=== PATIENT | male | born 1955 | race Two or more races ===

== ENCOUNTER 2024-04-27 13:30 | Outpatient (RCR) | payer MEDICARE, MEDICAID, SELFPAY ==
--- NOTE | 2024-04-21 18:11 | PT.ODAYNRPT ---
PT Outpatient Daily Note OP Daily Note Outpatient Physical Therapy Treatment Date: 04/21/24 Subjective: Less B UE pain since starting therapy Objective: See F/S for therex Assessment: Good therex tolerance with low tissue irritability Plan: REassess Length of Time (minutes) of Treatment: 30 Minutes Procedure Charges Therapeutic Exercise 30 minutes: Yes
--- NOTE | 2024-04-27 14:21 | PT.ODS1RPT ---
PT OP Progress/Discharge Note Date of Service: 04/27/24 Progress Note/DC Note Progress Note/Discharge Note: DC Note Service Continue Service or Discharge: Discharge Discharge Date: 04/27/24 Status Subjective: Less B UE pain since starting therapy, strength feels good. Objective: See F/S for therex B UE strength: Shoulder FF: 4/5 Abd: 4/5 Elbow Flexion: 4/5 ArOM: FF: full Assessment: Pt has attended 8/8 sessions with good progress to meet therapy goals. Pt can reach OH into FF x10 with <3/10 B shoulder pain and do HH chores with min B UE pain x30 mins to meet those goals. Plan: D/C with HEP Procedure Charges Therapeutic Exercise 30 minutes: Yes
== END 2024-05-14 23:59 | disposition home or self-care (01) ==
LOC: CPTX 13:30
PROVIDERS: PCP Nurse Practitioner Family; Referring Provider Nurse Practitioner Family; Visit Provider Nurse Practitioner Family
DX: M15.9 Polyosteoarthritis, unspecified (principal); I10 Essential (primary) hypertension
CPT/HCPCS: 97110

== ENCOUNTER → 2024-05-23 | Outpatient (CLI) | payer MEDICARE, MEDICAID, SELFPAY ==
--- NOTE | 2024-05-23 13:00 | XR_ITS ---
Examination: CT chest, without intravenous contrast. Sagittal and coronal 2-D reconstructions. Exam date and time: May 23, 2024 1331 hours INDICATIONS: CT chest November 25, 2023 bilateral pulmonary nodules CTDI:vol (mGy) 12.3 DLP: (mGycm) 492 Technique: Multiple 3.0 mm axial sections of the chest to been obtained. Bone and lung density settings are obtained. Sagittal and coronal 2-D reconstructions have been obtained. Low dose protocols were performed. One or more of the following dose reduction techniques were used; automated exposure control, adjustment of the mA and/or KV according to patient size, use of iterative reconstruction technique. Findings: No thoracic aortic aneurysm dilatation Main pulmonary artery segment is not enlarged Mild calcification left anterior descending coronary artery No paratracheal tracheobronchial or bronchopulmonary adenopathy 10 mm nodule with calcification right upper lobe No additional pulmonary nodules on this study No pneumonia or pulmonary edema Absent gallbladder No pancreatic or adrenal mass Significant parenchymal scarring left kidney IMPRESSION: No new pulmonary nodules No pneumonia or pulmonary edema or pleural disease
== END | disposition home or self-care (01) ==
PROVIDERS: PCP Physician Assistant; Referring Provider Specialist; Visit Provider Specialist
DX: R91.8 Other nonspecific abnormal finding of lung field (principal)
CPT/HCPCS: 71250

== ENCOUNTER → 2024-05-30 | Outpatient (CLI) | payer MEDICARE, MEDICAID, SELFPAY ==
--- NOTE | 2024-05-30 | XR_ITS ---
Examination: Lumbar spine 3 views Technique one AP lateral coned lateral lower lumbar spine 3 views Exam date and time: May 30, 2024 0901 hours INDICATIONS: Lower back pain 20 years FINDINGS: Moderate osteopenia No acute lumbar fracture Advanced degenerative disc disease L5-S1 Moderate lumbar spondylosis IMPRESSION: Diffuse lumbar degenerative disc disease, advanced L5-S1
== END | disposition home or self-care (01) ==
LOC: CDIM 07:43
PROVIDERS: Referring Provider Chiropractor; Visit Provider Chiropractor
DX: M51.369 Other intervertebral disc degeneration, lumbar region without mention of lumbar back pain or lower extremity pain (principal); M51.379 Other intervertebral disc degeneration, lumbosacral region without mention of lumbar back pain or lower extremity pain
CPT/HCPCS: 72100

== ENCOUNTER → 2024-06-02 | Outpatient (CLI) | payer MEDICARE, MEDICAID, SELFPAY ==
[2024-06-02 08:14] LABS: Collection Type, Urine Clean Catch; Squamous Epithelial Cell,Urine 0 /hpf (0-5)
[2024-06-02 08:36] LABS: Basophils # (Auto) 0.1 Thou/mm3 (0.0-0.2); Basophils % (Auto) 1 % (0-2.5); Eosinophils # (Auto) 0.2 Thou/mm3 (0.0-0.5); Eosinophils % (Auto) 2 % (0-10); Hematocrit 40.3 % (41.0-53.0); Hemoglobin 13.4 g/dL (13.5-16.0); Immature Granulocytes % (Auto) 0 % (0-0); Immature Granulocytes Auto 0.03 Thou/mm3 (0.00-0.00); Lymphocytes # (Auto) 1.7 Thou/mm3 (1.0-4.8); Lymphocytes % (Auto) 21 % (10-50); Mean Corpuscular HGB Conc 33.3 g/dl (31.0-37.0); Mean Corpuscular Hemoglobin 29.8 pg (25.0-35.0); Mean Corpuscular Volume 90 fL (80-100); Monocytes # (Auto) 0.7 Thou/mm3 (0.0-0.8); Monocytes % (Auto) 8 % (0-12); Neutrophils # (Auto) 5.7 Thou/mm3 (1.8-7.7); Neutrophils % (Auto) 68 % (37-80); Nucleated Red Blood Cell % 0 /100 WBC (0); Platelet Count 209 Thou/mm3 (140-440); RDW Standard Deviation 44.4 fL (35.1-43.9); Red Blood Count 4.49 Miln/mm3 (4.50-5.90); White Blood Count 8.3 Thou/mm3 (3.8-10.6)
[2024-06-02 08:36] LABS: Bilirubin,Urine Negative (Negative); Blood,Urine Negative (Negative); Clarity,Urine Clear (Clear/Hazy); Color,Urine Lt-Yellow (Lt Yel-Yel); Glucose, Urine Negative (Negative); Hyaline Casts,Urine < 1 /hpf (0-1); Ketones,Urine Negative (Negative); Leukocyte Esterase,Urine Negative (Negative); Nitrite,Urine Negative (Negative); Protein,Urine Negative (Neg - Trace); RBC,Urine 2 /hpf (0-3); Specific Gravity,Urine 1.018 (1.001-1.035); Urobilinogen,Urine Negative mg/dL (0.0-1.0); WBC,Urine < 1 /hpf (0-5)
[2024-06-02 09:45] LABS: Alanine Aminotransferase 22 U/L (10-49); Albumin/Globulin Ratio 1.7 (1.2-2.2); Alkaline Phosphatase 97 U/L (46-116); Anion Gap 7 (7-16); Aspartate Amino Transferase 18 U/L (0-34); BUN/Creatinine Ratio 17 Ratio (12-20); Bilirubin,Total 0.7 mg/dL (0.3-1.2); Blood Urea Nitrogen 22 mg/dL (9-23); Calcium 9.8 mg/dL (8.3-10.6); Calcium (Corrected) 9.8 mg/dL (8.5-10.1); Carbon Dioxide 29.3 mMol/L (20.0-31.0); Chloride 107 mMol/L (98-107); Creatinine (Component) 1.3 mg/dL (0.6-1.3); Globulin 2.4 gm/dL (2.3-3.5); Glucose 97 mg/dL (74-106); Osmolality,Calculated 288 (275-295); Potassium 4.4 mMol/L (3.4-5.1); Sodium 143 mMol/L (136-145); Thyroid Stimulating Hormone 1.15 uIU/mL (0.55-4.78); Total Protein 6.4 gm/dL (5.7-8.2); eGFR 59 See Note
[2024-06-02 14:22] LABS: Glucose Estimated Average 108 mg/dL (80-131); Hemoglobin A1C 5.4 % Hgb (4.8-6.0)
[2024-06-02 14:45] LABS: Cardiac Risk Estimate 3.7 RATIO (4.0-6.7); Cholesterol 174 mg/dL (132-200); HDL Cholesterol 47 mg/dL (40-60); LDL Cholesterol,Calculated 108 mg/dL (0-130); Triglycerides 93 mg/dL (30-150)
== END | disposition home or self-care (01) ==
LOC: COPL 07:07
PROVIDERS: PCP Physician Assistant; Referring Provider Internal Medicine; Visit Provider Internal Medicine
DX: I12.9 Hypertensive chronic kidney disease with stage 1 through stage 4 chronic kidney disease, or unspecified chronic kidney disease (principal); N18.30 Chronic kidney disease, stage 3 unspecified; N39.0 Urinary tract infection, site not specified
CPT/HCPCS: 36415; 80053; 80061; 81001; 83036; 84443; 85025

== ENCOUNTER → 2024-06-27 | Outpatient (CLI) | payer MEDICARE, MEDICAID, SELFPAY ==
--- NOTE | 2024-06-27 | XR_ITS ---
Examination: PA lateral chest 2 views TECHNIQUE: Upright PA lateral chest 2 views Exam date and time: June 27, 2024 0802 hours Comparison December 18, 2023 INDICATIONS: Preop, history chronic hypertension FINDINGS: Normal heart size The lungs are clear. Mild osteopenia IMPRESSION: No active disease
== END | disposition home or self-care (01) ==
LOC: CDIM 07:43
PROVIDERS: PCP Family Medicine; Referring Provider Nurse Practitioner Family; Visit Provider Nurse Practitioner Family
DX: Z01.818 Encounter for other preprocedural examination (principal)
CPT/HCPCS: 71046

== ENCOUNTER 2024-07-04 08:39 | Emergency (ER) | payer MEDICARE, MEDICAID, SELFPAY ==
[2024-07-04 08:41] VITALS: BMI 32.3
[2024-07-04 09:07] VITALS: BP 177/68; PULSE 60; RESP 17; TEMP 37.1; O2SAT 98; BMI 30.2
--- NOTE | 2024-07-04 09:17 | EKG_ITS ---
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 Seine: : 1955 Requested By: Renay Lewis ([facility]) Servando Order Number: [id number] Reading MD: Renay Lewis ([facility]) Servando Measurements Intervals Vega Rate: 56 P: 42 NE: 152 QRS: -9 QRSD: 102 T: 182 QT: 397 QTc: 384 Interpretive Statements SINUS BRADYCARDIA MODERATE T-WAVE ABNORMALITY, CONSIDER ANTEROLATERAL ISCHEMIA [-0.1+ mV T WAVE IN V3-V6] MODERATE T-WAVE ABNORMALITY, CONSIDER INFERIOR ISCHEMIA [-0.1+ mV T WAVE IN II/aVF] Compared to ECG 12/18/2023 09:46:59 Sinus rhythm no longer present T-wave abnormality still present Possible ischemia still present /store/S0/[id number]/ecg/[id number].pdf
--- NOTE | 2024-07-04 09:19 | XR_ITS ---
Examination: Abdomen sonogram, Limited Date and time of exam: July 04, 2024 1055 hours INDICATIONS: Heartburn abdominal pain beginning one week ago Technique: Real-time mazariegos scale transabdominal sonographic images of the upper abdomen obtained. Findings: Absent gallbladder Common bile duct 0.3 cm no stones Pancreatic head 2.8 cm Liver 13.3 cm irregular contour fatty infiltration no focal liver lesions Normal hepatopedal portal venous flow Patent IVC IMPRESSION: Normal common bile duct Suspect primary hepatocellular disease no focal liver lesions
--- NOTE | 2024-07-04 09:19 | PD.EDRME ---
Rapid Medical Screening Exam RME Arrival date/time: 07/04/24 08:39 This is a 68-year-old male history of hypertension, diabetes, renal sufficiency presents emergency department with concern plaints of upper epigastric abdominal pain associated with nausea. I have greeted and performed a focused initial assessment of this patient. Initial appropriate labs ordered at this time. A comprehensive ED assessment and evaluation of the patient and analysis of all test and completion of medical decision making process will be conducted by additional ED provider. Chief Complaint: Abdominal Pain Time Seen by Provider: 07/04/24 09:00 Vital signs: Vital Signs Temperature 98.8 F 07/04/24 09:07 Pulse Rate 60 07/04/24 09:07 Respiratory Rate 17 07/04/24 09:07 Blood Pressure 177/68 H 07/04/24 09:07 Pulse Oximetry (%) 98 07/04/24 09:07 Oxygen Delivery Method Room Air 07/04/24 09:07
[2024-07-04 10:22] LABS: Basophils # (Auto) 0.1 Thou/mm3 (0.0-0.2); Basophils % (Auto) 1 % (0-2.5); Eosinophils # (Auto) 0.2 Thou/mm3 (0.0-0.5); Eosinophils % (Auto) 3 % (0-10); Hematocrit 40.6 % (41.0-53.0); Hemoglobin 13.7 g/dL (13.5-16.0); Immature Granulocytes % (Auto) 0 % (0-0); Immature Granulocytes Auto 0.03 Thou/mm3 (0.00-0.00); Lymphocytes # (Auto) 1.2 Thou/mm3 (1.0-4.8); Lymphocytes % (Auto) 16 % (10-50); Mean Corpuscular HGB Conc 33.7 g/dl (31.0-37.0); Mean Corpuscular Hemoglobin 30.2 pg (25.0-35.0); Mean Corpuscular Volume 90 fL (80-100); Monocytes # (Auto) 0.6 Thou/mm3 (0.0-0.8); Monocytes % (Auto) 7 % (0-12); Neutrophils # (Auto) 5.4 Thou/mm3 (1.8-7.7); Neutrophils % (Auto) 72 % (37-80); Nucleated Red Blood Cell % 0 /100 WBC (0); Platelet Count 211 Thou/mm3 (140-440); RDW Standard Deviation 43.6 fL (35.1-43.9); Red Blood Count 4.53 Miln/mm3 (4.50-5.90); White Blood Count 7.5 Thou/mm3 (3.8-10.6)
[2024-07-04 10:28] VITALS: BP 182/73; PULSE 54; RESP 15; TEMP 36.9; O2SAT 94
[2024-07-04 10:38] LABS: Alanine Aminotransferase 23 U/L (10-49); Albumin, Serum 4.2 gm/dL (3.4-4.8); Albumin/Globulin Ratio 1.5 (1.2-2.2); Alkaline Phosphatase 89 U/L (46-116); Anion Gap 7 (7-16); Aspartate Amino Transferase 23 U/L (0-34); BUN/Creatinine Ratio 13 Ratio (12-20); Bilirubin,Total 0.8 mg/dL (0.3-1.2); Blood Urea Nitrogen 15 mg/dL (9-23); Calcium 10.1 mg/dL (8.3-10.6); Calcium (Corrected) 10.1 mg/dL (8.5-10.1); Carbon Dioxide 28.8 mMol/L (20.0-31.0); Chloride 105 mMol/L (98-107); Creatinine (Component) 1.2 mg/dL (0.6-1.3); Estimated Creatinine Clearance 55.4 mL/min (>60); Globulin 2.8 gm/dL (2.3-3.5); Glucose 142 mg/dL (74-106); Lipase 68 U/L (12-53); Osmolality,Calculated 284 (275-295); Potassium 3.6 mMol/L (3.4-5.1); Sodium 141 mMol/L (136-145); Troponin I < 0.020 ng/mL (0.0-0.045); eGFR > 60 See Note
[2024-07-04] MEDS: MG HYD/AL HYD/SIME (Maalox Reg) SUSP 30 ML UDC PO (11:12)
[2024-07-04] MEDS: LIDOCAINE VISCOUS 2% 15 ML UDC PO (11:12)
--- NOTE | 2024-07-04 11:19 | EDNOTE_ITS ---
ED General RME/HPI General Chief complaint: Abdominal Pain Stated complaint: ABD PAIN FOR 3 DAYS Time Seen by Provider: 07/04/24 09:00 Arrival date/time: 07/04/24 08:39 RME / HPI RME / HPI narrative: Sam complaint: 07/04/24 08:39 flank/ abdominal pain associated with nausea x 1 day HPI: Patient is a 68-year-old male history of primary hypertension, T2 diabetes, renal insufficiency presents emergency department with concern plaints of B/L flanks abdominal pain associated with nausea. Patient's pain started 2 days ago and progressively got worse. He describes his pain as intermittent, sharp and 10/10 when it occurs, localized mostly to the flanks, R>L. He has never experienced these symptoms before. Her denies any history of hernias, scrotal pain or radiation of his flank pain. Pain is worse with movement and improves with rest. he denies any fevers or other systemic symptoms at this time. In the ED, vitals showed high BP - 170-180 systolic, as patient did not take his home antihypertensive. Medication list: Losartan Carvedilol Quietiapine Atorvastatin Past surgical history: Cholecystectomy B/L Knee replacement LT shoulder tear Lumbar spine surgery- ?discectomy Allergies: NKFDA Social history: Marital?Status:? Tobacco?Use:?Denies ETOH?Use:?Socially Drug?Note:?Denies Social?History?Note:?Lives at home with family Family history: Denies family history of SCD or stroke, no cancers. L Related Data Home Medications ?Medication ?Instructions ?Recorded ?Confirmed losartan 50 mg tablet 100 mg PO DAILY 10/16/22 07/04/24 vitamin B complex-vitamin C-folic 1 tab PO QDAY 10/16/22 07/04/24 acid 0.8 mg tablet (Angie-Jericho) quetiapine 150 mg tablet 25 mg PO DAILY 09/21/23 07/04/24 acetaminophen 325 mg capsule 650 mg PO Q8HR PRN arthritis 07/04/24 07/04/24 carvedilol 12.5 mg tablet 12.5 mg PO BID 07/04/24 07/04/24 docosahexaenoic acid (dha)-epa 1 cap PO DAILY 07/04/24 07/04/24 capsule eszopiclone 3 mg tablet 3 mg PO HS 07/04/24 07/04/24 metoclopramide HCl 5 mg tablet 3 mg PO BID 07/04/24 07/04/24 Previous Rx's ?Medication ?Instructions ?Recorded simethicone 80 mg chewable tablet 80 mg PO QDAY PRN abdominal 07/04/24 distention 1 month #30 tabs Allergies Allergy/AdvReac Type Severity Reaction Status Date / Time No Known Allergies Allergy Verified 07/04/24 08:43 Review of Systems Review of Systems Narrative Review of Systems: GENERAL: Denies fevers/chills or diaphoresis. HEENT: Denies headache or visual/hearing changes. Denies nasal discharge. NEURO: Denies unusual weakness or difficulty speaking. CARDIO: Denies chest pain or palpitations. PULM: Denies SOB, coughing, or wheezing. GI: b/l flank abdominal pain, N/V/C/D. Reports having BMs URO: Denies burning/itching/pain/urinary changes. MSK/EXT/SKIN: Denies joint/skeletal/muscle pain, issues/changes in upper or lower extremities, itchiness, or superficial pain. PSYCH: Cooperative, pleasant mood & affect. The rest of the review of systems is otherwise negative. ED Exam Narrative Physical exam: Constitutional Alert, oriented x3 and comfortable HEENT Vision grossly intact. Patent nares. Trachea midline. Respiratory Chest normal on inspection and clear to auscultation bilaterally. Cardiovascular S1 and S2 audible, RRR. No murmurs or carotid bruit. No gross JVD. Abdominal Soft and mildly tender to palpation in RLQ and LLQ. BS + Genitourinary No bladder tenderness, no flank pain. Normal to palpation. Musculoskeletal Extremities tone within normal limits. No LE edema. Neurological CN II - XII grossly intact. Extremity motor and sensation grossly intact. Skin Warm, dry and intact. No apparent lesions. Psychiatric Patient has a good affect, is cooperative. Course Course Course Narrative: CT Abdo: IMPRESSION: Atrophic end-stage right kidney Severe scarring left kidney, no hydronephrosis Normal appendix Mild small bowel ileus Mild cystitis pattern Quality Measures none Orders Category Date Time Status CT Screening NOW Care 07/04/24 14:31 Active EKG (ED ONLY) *Do not use* NOW Care 07/04/24 09:17 Completed NPO STAT Care 07/04/24 09:[address] abdomen pelvis w con Stat Exams 07/04/24 14:31 Completed EKG (ED Only) Stat Exams 07/04/24 09:17 Draft US gall bladder Stat Exams 07/04/24 09:19 Completed CBC Stat Lab 07/04/24 10:04 Completed Comprehensive Metabolic Panel Stat Lab 07/04/24 10:04 Completed Lipase Stat Lab 07/04/24 10:04 Completed Prothrombin Time with INR Stat Lab 07/04/24 10:04 Completed Troponin I Stat Lab 07/04/24 10:04 Completed Urinalysis Stat Lab 07/04/24 11:52 Completed Lidocaine 2% Viscous [Xylocaine 2% Viscous] Med 07/04/24 09:17 Discontinued 15 ml PO X1 ONE Losartan [Cozaar] Med 07/04/24 14:33 Discontinued 100 mg PO X1 ONE hydrALAZINE INJ [Apresoline Inj] Med 07/04/24 11:19 Discontinued 10 mg IV X1 ONE hydrALAZINE INJ [Apresoline Inj] Med 07/04/24 14:32 Discontinued 20 mg IV X1 ONE mg Hyd/Al Hyd/Veronica Susp [Maalox Susp] Med 07/04/24 09:17 Discontinued 30 ml PO X1 ONE Reevaluation(s) Reevaluation #1: 11:[address] abdo/pelvis at this time for further evaluation Continue NPO with only ice chips and meds allowed Pain has improved with Lidocaine and Simethicone Reevaluation #2: 3:45 pm Patient's pain has completely resolved. BP improved with home losartan 100mg x1 CT abdomen showed atrophic end-stage right kidney, severe scarring left kidney, no hydronephrosis, mild small bowel ileus and mild cystitis pattern Vital Signs Vital signs: Vital Signs Temperature 98.8 F 07/04/24 09:07 Pulse Rate 60 07/04/24 09:07 Respiratory Rate 17 07/04/24 09:07 Blood Pressure 177/68 H 07/04/24 09:07 Pulse Oximetry (%) 98 07/04/24 09:07 Oxygen Delivery Method Room Air 07/04/24 09:07 [facility] Patient data External records reviewed:: None Clinical information provided by:: patient Social determinants that could affect healthcare access:: none Patient has the following chronic illnesses:: primary hypertension, T2 diabetes, renal insufficiency How is presenting disease/condition affected by chronic disease/condition?: e xacerbated by Evaluation data The following diagnostics were reviewed and interpreted by me:: lab results, radiology exam(s) and EKG tracing(s) Lab and/or radiology exams considered but not ordered:: MRI Interpretation Summary: Bilateral renal atrophy and scarring Abdominal pain likely due to bowel ileus - now resolved Medications Medications considered but not ordered:: Morphine Medication administrations:: Medication Administration History Discontinued Medications Al Hydrox/Mg Hydrox/Simethicone (Mg Hyd/Al Hyd/Veronica (Maalox Reg) Susp 30 Ml Udc) 30 ml PO X1 ONE Stop: 07/04/24 09:18 Last Admin: 07/04/24 11:12 Dose: 30 ml Documented By: AM Hydralazine HCl (Hydralazine Inj 20 Mg/Ml Vial) 10 mg IV X1 ONE Stop: 07/04/24 11:20 Last Admin: 07/04/24 11:49 Dose: 10 mg Documented By: RD Hydralazine HCl (Hydralazine Inj 20 Mg/Ml Vial) 20 mg IV X1 ONE Stop: 07/04/24 14:33 Lidocaine HCl (Lidocaine Viscous 2% 15 Ml Udc) 15 ml PO X1 ONE Stop: 07/04/24 09:18 Last Admin: 07/04/24 11:12 Dose: 15 ml Documented By: AM Losartan Potassium (Losartan Potassium 25 Mg Tablet) 100 mg PO X1 ONE Stop: 07/04/24 14:34 Last Admin: 07/04/24 15:11 Dose: 100 mg Documented By: AM symptom control Consultations Consultation(s) initiated? (list below): No Diagnosis Differential Diagnosis ED Complaint MDM: diverticulitis Most likely diagnosis given after review of the tests above:: Bilateral renal atrophy and scarring Abdominal pain likely due to bowel ileus - now resolved Admission Indicated Admission indicated?: not indicated Explain why admission is indicated or not indicated:: Symptoms resolved in the ER Admission Request Was there a request for admission?: No Disposition Plan Disposition Plan: Discharge Discharge Attestation Discharge Attestation: The patient and all family members were given an opportunity to ask questions and understood the discharge instructions. Discharge instructions specifically effects, indications for sooner follow up or return to the emergency department, and the expected course of current diagnosis. Patient condition: Stable Medical Decision Making MDM Narrative MDM Narrative: Patient is a 68 year old male who presented with lower abdominal pain which improved spontaneously in the ER. CT abdomen was remarkable for B/L atrophic end-stage right kidney, severe scarring left kidney, no hydronephrosis, mild small bowel ileus and mild cystitis pattern. Abdominal pain likely due to bowel ileus - now resolved Differential Diagnosis Differential Diagnosis: diverticulitis Lab Data 07/04/24 10:04 07/04/24 10:04 Labs: Lab Results 07/04/24 07/04/24 Range/Units 10:04 11:52 WBC 7.5 (3.8-10.6) Thou/mm3 RBC 4.53 (4.50-5.90) Miln/mm3 Hgb 13.7 (13.5-16.0) g/dL Hct 40.6 L (41.0-53.0) % MCV 90 (80-100) fL MCH 30.2 (25.0-35.0) pg MCHC 33.7 (31.0-37.0) g/dl RDW Std Deviation 43.6 (35.1-43.9) fL Plt Count 211 (140-440) Thou/mm3 Neut % (Auto) 72 (37-80) % Lymph % (Auto) 16 (10-50) % [place] % (Auto) 7 (0-12) % Eos % (Auto) 3 (0-10) % Baso % (Auto) 1 (0-2.5) % Neut # (Auto) 5.4 (1.8-7.7) Thou/mm3 Lymph # (Auto) 1.2 (1.0-4.8) Thou/mm3 [place] # (Auto) 0.6 (0.0-0.8) Thou/mm3 Eos # (Auto) 0.2 (0.0-0.5) Thou/mm3 Baso # (Auto) 0.1 (0.0-0.2) Thou/mm3 Immature Gran # (Auto) 0.03 H (0.00-0.00) Thou/mm3 Absolute Nucleated RBC 0.00 (0.00-0.00) Thou/mm3 Immature Gran % 0 (0-0) % Nucleated RBC % 0 (0) /100 WBC PT 11.0 (9.0-12.2) Seconds INR 1.0 (0.9-1.3) Sodium 141 (136-145) mMol/L Potassium 3.6 (3.4-5.1) mMol/L Chloride 105 (98-107) mMol/L Carbon Dioxide 28.8 (20.0-31.0) mMol/L Anion Gap 7 (7-16) BUN 15 (9-23) mg/dL Creatinine 1.2 (0.6-1.3) mg/dL Estim Creat Clear Calc 55.4 L (>60) mL/min eGFR > 60 (60 - ) See Note BUN/Creatinine Ratio 13 (12-20) Ratio Glucose 142 H (74-106) mg/dL Calculated Osmolality 284 (275-295) Calcium 10.1 (8.3-10.6) mg/dL Corrected Calcium 10.1 (8.5-10.1) mg/dL Total Bilirubin 0.8 (0.3-1.2) mg/dL AST 23 (0-34) U/L ALT 23 (10-49) U/L Alkaline Phosphatase 89 (46-116) U/L Troponin I < 0.020 (0.0-0.045) ng/mL Total Protein 7.0 (5.7-8.2) gm/dL Albumin 4.2 (3.4-4.8) gm/dL Globulin 2.8 (2.3-3.5) gm/dL Albumin/Globulin Ratio 1.5 (1.2-2.2) Lipase 68 H (12-53) U/L Ur Collection Type Clean Catch Urine Color Yellow (Lt Yel-Yel) Urine Clarity Clear (Clear/Hazy) Urine pH 6.0 (5.0-7.0) Ur Specific [place] 1.018 (1.001-1.035) Urine Protein Negative (Neg - Trace) Urine Glucose (UA) Negative (Negative) Urine Ketones Negative (Negative) Urine Blood Negative (Negative) Urine Nitrite Negative (Negative) Urine Bilirubin Negative (Negative) Urine Urobilinogen (Auto) Negative (0.0-1.0) mg/dL Ur Leukocyte Esterase Negative (Negative) Urine RBC 0 (0-3) /hpf Urine WBC 0 (0-5) /hpf Ur Squamous Epith Cells 0 (0-5) /hpf Urine Bacteria None (None) Hyaline Casts < 1 (0-1) /hpf Discharge Plan Plan Patient Disposition: HOME (Self Care) Patient condition on transfer: Stable Prescriptions/Referrals Prescriptions/Med Rec: New simethicone 80 mg tablet,chewable 80 mg PO QDAY PRN (Reason: abdominal distention) 30 Days Qty: 30 0RF No Action metoclopramide HCl 5 mg tablet 3 mg PO BID carvedilol 12.5 mg tablet 12.5 mg PO BID eszopiclone 3 mg tablet 3 mg PO HS Patient Comments: TOME 1 TABLETA POR V A ORAL TODOS LOS D AL ACOSTARSE Fish Oil (with DHA-EPA) Capsule 1 cap PO DAILY acetaminophen [Tylenol] 325 mg Capsule 650 mg PO Q8HR PRN (Reason: arthritis) losartan 50 mg Tablet 100 mg PO DAILY Angie-Jericho 0.8 mg Tablet 1 tab PO QDAY quetiapine 150 mg Tablet 25 mg PO DAILY Referrals: Andi Tai [Primary Care Provider] - In 1 week Problem List Clinical Impression: Abdominal pain, Abdominal distension, gaseous Patient/Caregiver Discharge Instructions Discharge Activity: resume usual activities Education Materials: Eating a High-Fiber Diet, DASH Plan Eat Heart Healthy Food Print Language: Slovenian Stand Alone Forms: Saima Award Info., Patient Portal Info Letter
[2024-07-04 11:49] VITALS: BP 187/76; PULSE 51
[2024-07-04] MEDS: hydrALAZINE INJ 20 MG/ML VIAL 10 MG IV (11:49)
[2024-07-04 12:00] LABS: Collection Type, Urine Clean Catch; RBC,Urine 0 /hpf (0-3); Squamous Epithelial Cell,Urine 0 /hpf (0-5); WBC,Urine 0 /hpf (0-5)
[2024-07-04 12:14] LABS: Bilirubin,Urine Negative (Negative); Blood,Urine Negative (Negative); Clarity,Urine Clear (Clear/Hazy); Color,Urine Yellow (Lt Yel-Yel); Glucose, Urine Negative (Negative); Hyaline Casts,Urine < 1 /hpf (0-1); Ketones,Urine Negative (Negative); Leukocyte Esterase,Urine Negative (Negative); Nitrite,Urine Negative (Negative); Protein,Urine Negative (Neg - Trace); Specific Gravity,Urine 1.018 (1.001-1.035); Urobilinogen,Urine Negative mg/dL (0.0-1.0)
[2024-07-04 13:23] VITALS: BP 202/84; PULSE 68; RESP 14; TEMP 36.9; O2SAT 96
--- NOTE | 2024-07-04 14:31 | XR_ITS ---
Examination: CT abdomen with intravenous contrast CT pelvis with intravenous contrast 2-D coronal reconstructions 2-D sagittal reconstructions Date and time of exam:July 04, 2024 1543 hours Comparison July 12, 2022 INDICATIONS: Upper abdominal pain and nausea beginning today. CTDI: vol (mGy) 7.68 DLP: (mGycm) 451 Technique: Multiple axial sections of the abdomen and pelvis have been obtained. 64 slice high-resolution scanner used. 3 mm axial sections have been obtained, post intravenous injection 60 cc [id number] 2-D sagittal, coronal reconstructions obtained. Low dose protocols were performed. One or more of the following dose reduction techniques were used; automated exposure control, adjustment of the mA and/or KV according to patient size, use of iterative reconstruction technique. Findings: No focal liver or splenic lesions Absent gallbladder No extrahepatic biliary tract dilatation. No pancreatic mass or peripancreatic edema Atrophic end-stage right kidney Severe scarring left kidney no hydronephrosis Aorta normal size Normal appendix Mild small bowel ileus No diverticulitis Contracted urinary bladder, minimal urinary bladder wall thickening Transverse prostate dimension 4 cm Advanced disc narrowing L5-S1 IMPRESSION: Atrophic end-stage right kidney Severe scarring left kidney, no hydronephrosis Normal appendix Mild small bowel ileus Mild cystitis pattern
[2024-07-04 15:11] VITALS: BP 159/78; PULSE 75
[2024-07-04] MEDS: LOSARTAN POTASSIUM 25 MG TABLET 100 MG PO (15:11)
== END 2024-07-04 16:58 | disposition home or self-care (01) ==
PROVIDERS: Emergency Provider Nurse Practitioner Primary Care
DX: R14.0 Abdominal distension (gaseous) (principal); R12 Heartburn; N26.1 Atrophy of kidney (terminal); N28.89 Other specified disorders of kidney and ureter; R00.1 Bradycardia, unspecified; I10 Essential (primary) hypertension
CPT/HCPCS: 36415; 74177; 76705; 80053; 81001; 83690; 84484; 85025; 85610; 93005; 99285; A4649; J0360; J3490; Q9967; A9270

== ENCOUNTER 2024-07-19 09:37 | Emergency (ER) | payer MEDICARE, MEDICAID, SELFPAY ==
[2024-07-19 09:38] VITALS: BMI 28.3
[2024-07-19 10:15] VITALS: BP 117/70; PULSE 62; RESP 16; TEMP 36.9; O2SAT 98
--- NOTE | 2024-07-19 10:34 | XR_ITS ---
Examination: CT abdomen and pelvis without contrast. Coronal 3-D reconstructions. Sagittal 2-D reconstructions. Date and time of exam: There is no detectable July 19, 2024 10:41 AM Comparison July 04, 2024 INDICATIONS: Onset upper abdominal pain today CTDI: vol (mGy): 7.87 DLP: (mGycm): 156 Technique: Axial images of the abdomen have been obtained, 3 mm slice thickness Intravenous contrast material has not been administered. Low dose protocols were performed. One or more of the following dose reduction techniques were used; automated exposure control, adjustment of the mA and/or KV according to patient size, use of iterative reconstruction technique. Findings: No focal liver or splenic lesions Absent gallbladder No pancreatic or adrenal mass End-stage atrophic right kidney Severe scarring left kidney, mild perinephric stranding, no renal or ureteral calculi, no hydronephrosis Aortic calcification no aneurysmal dilatation Normal appendix No bowel obstruction No diverticulitis Abundant stool in the rectosigmoid Normal seminal vesicles No significant prostatomegaly Contracted urinary bladder Advanced degenerative disc disease L5-S1 IMPRESSION: End-stage atrophic right kidney Severe scarring left kidney, mild perinephric stranding, no renal or ureteral calculi, no hydronephrosis Normal appendix No bowel obstruction
--- NOTE | 2024-07-19 10:34 | PD.EDRME ---
Rapid Medical Screening Exam RME Arrival date/time: 07/19/24 09:37 68-year-old male presents to the emergency department complaints of abdominal pain patient evaluated on 07/04 for the same Chief Complaint: Abdominal Pain Vital signs: Vital Signs Temperature 98.5 F 07/19/24 10:15 Pulse Rate 62 07/19/24 10:15 Respiratory Rate 16 07/19/24 10:15 Blood Pressure 117/70 07/19/24 10:15 Pulse Oximetry (%) 98 07/19/24 10:15 Oxygen Delivery Method Room Air 07/19/24 10:15
[2024-07-19 11:27] LABS: Collection Type, Urine Clean Catch; Squamous Epithelial Cell,Urine 0 /hpf (0-5)
[2024-07-19 11:28] LABS: Basophils # (Auto) 0.1 Thou/mm3 (0.0-0.2); Basophils % (Auto) 1 % (0-2.5); Eosinophils # (Auto) 0.1 Thou/mm3 (0.0-0.5); Eosinophils % (Auto) 1 % (0-10); Hematocrit 41.1 % (41.0-53.0); Hemoglobin 14.1 g/dL (13.5-16.0); Immature Granulocytes % (Auto) 0 % (0-0); Immature Granulocytes Auto 0.04 Thou/mm3 (0.00-0.00); Lymphocytes # (Auto) 1.4 Thou/mm3 (1.0-4.8); Lymphocytes % (Auto) 14 % (10-50); Mean Corpuscular HGB Conc 34.3 g/dl (31.0-37.0); Mean Corpuscular Hemoglobin 30.5 pg (25.0-35.0); Mean Corpuscular Volume 89 fL (80-100); Monocytes # (Auto) 0.9 Thou/mm3 (0.0-0.8); Monocytes % (Auto) 9 % (0-12); Neutrophils % (Auto) 74 % (37-80); Nucleated Red Blood Cell % 0 /100 WBC (0); Platelet Count 261 Thou/mm3 (140-440); RDW Standard Deviation 42.7 fL (35.1-43.9); Red Blood Count 4.63 Miln/mm3 (4.50-5.90); White Blood Count 9.4 Thou/mm3 (3.8-10.6)
[2024-07-19 11:30] LABS: Bilirubin,Urine Negative (Negative); Blood,Urine Negative (Negative); Clarity,Urine Clear (Clear/Hazy); Color,Urine Yellow (Lt Yel-Yel); Culture Indicated,Urine Not Indicated; Glucose, Urine Negative (Negative); Ketones,Urine Negative (Negative); Leukocyte Esterase,Urine Negative (Negative); Nitrite,Urine Negative (Negative); Protein,Urine Trace (Neg - Trace); RBC,Urine 3 /hpf (0-3); Specific Gravity,Urine 1.023 (1.001-1.035); Urobilinogen,Urine Negative mg/dL (0.0-1.0); WBC,Urine 1 /hpf (0-5)
[2024-07-19 11:49] LABS: Alanine Aminotransferase 29 U/L (10-49); Albumin, Serum 4.4 gm/dL (3.4-4.8); Albumin/Globulin Ratio 1.5 (1.2-2.2); Alkaline Phosphatase 94 U/L (46-116); Anion Gap 7 (7-16); Aspartate Amino Transferase 19 U/L (0-34); BUN/Creatinine Ratio 14 Ratio (12-20); Bilirubin,Total 0.6 mg/dL (0.3-1.2); Blood Urea Nitrogen 17 mg/dL (9-23); Calcium 9.6 mg/dL (8.3-10.6); Calcium (Corrected) 9.6 mg/dL (8.5-10.1); Carbon Dioxide 28.9 mMol/L (20.0-31.0); Chloride 102 mMol/L (98-107); Creatinine (Component) 1.2 mg/dL (0.6-1.3); Estimated Creatinine Clearance 53.8 mL/min (>60); Globulin 2.9 gm/dL (2.3-3.5); Glucose 104 mg/dL (74-106); Lipase 83 U/L (12-53); Osmolality,Calculated 277 (275-295); Sodium 138 mMol/L (136-145); Total Protein 7.3 gm/dL (5.7-8.2); eGFR > 60 See Note
--- NOTE | 2024-07-19 14:00 | PD.EDABDPN ---
ED Abdominal Pain RME/HPI General Chief Complaint: Abdominal Pain Stated complaint: NAUSEA/VOMITING ABD PAIN SINCE 07/04 Time seen by provider: 07/19/24 13:18 Arrival date/time: 07/19/24 09:37 68-year-old male with no known medical history presents to the emergency room with a chief complaint of nausea, vomiting, 6 out of 10 epigastric pain that began 2 weeks ago. Source: patient Mode of arrival: ambulatory Limitations: no limitations RME / HPI RME / HPI narrative: 07/19/24 09:37 68-year-old male presents to the emergency department complaints of abdominal pain patient evaluated on 07/04 for the same Related Data Home Medications ?Medication ?Instructions ?Recorded ?Confirmed losartan 50 mg tablet 100 mg PO DAILY 10/16/22 07/04/24 vitamin B complex-vitamin C-folic 1 tab PO QDAY 10/16/22 07/04/24 acid 0.8 mg tablet (Angie-Jericho) quetiapine 150 mg tablet 25 mg PO DAILY 09/21/23 07/04/24 acetaminophen 325 mg capsule 650 mg PO Q8HR PRN arthritis 07/04/24 07/04/24 carvedilol 12.5 mg tablet 12.5 mg PO BID 07/04/24 07/04/24 docosahexaenoic acid (dha)-epa 1 cap PO DAILY 07/04/24 07/04/24 capsule eszopiclone 3 mg tablet 3 mg PO HS 07/04/24 07/04/24 metoclopramide HCl 5 mg tablet 3 mg PO BID 07/04/24 07/04/24 Previous Rx's ?Medication ?Instructions ?Recorded simethicone 80 mg chewable tablet 80 mg PO QDAY PRN abdominal 07/04/24 distention 1 month #30 tabs omeprazole 20 mg capsule,delayed 20 mg PO QDAY #20 caps 07/19/24 release Allergies Allergy/AdvReac Type Severity Reaction Status Date / Time No Known Allergies Allergy Verified 07/19/24 09:40 Review of Systems Review of Systems Systems Reviewed: All systems reviewed, normal except as documented Constitutional Constitutional: Reports system reviewed and no additional complaints, except as documented, Denies fatigue, Denies fever(s), Denies headache(s) and Denies weakness Eyes Eyes: Reports system reviewed and no additional complaints, except as documented, Denies blurry vision and Denies change in vision ENT Ears, Nose, Mouth, and Throat: Reports system reviewed and no additional complaints, except as documented, Denies otalgia, Denies headache(s), Denies nasal congestion, Denies throat swelling and Denies vertigo Cardiovascular Cardiovascular: Reports system reviewed and no additional complaints, except as documented, Denies chest pain, Denies dyspnea and Denies dyspnea on exertion Respiratory Respiratory: Reports system reviewed and no additional complaints, except as documented, Denies chest congestion, Denies cough, Denies dyspnea, Denies dyspnea on exertion and Denies wheezing Gastrointestinal Gastrointestinal: Reports system reviewed and no additional complaints, except as documented, Reports abdominal pain, Reports belching, Denies cramping, Reports heartburn, Reports nausea and Reports vomiting Genitourinary Genitourinary: Reports system reviewed and no additional complaints, except as documented, Denies dysuria and Denies hematuria Musculoskeletal Musculoskeletal: Reports system reviewed and no additional complaints, except as documented and Denies back pain Integumentary/Breasts Skin/Breast: Reports system reviewed and no additional complaints, except as documented and Denies wounds Neurologic Neurologic: Reports system reviewed and no additional complaints, except as documented, Denies confusion, Denies headache(s), Denies lack of coordination, Denies vertigo and Denies weakness Psychiatric Psychiatric: Reports system reviewed and no additional complaints, except as documented, Denies anxiety, Denies confusion, Denies depression, Denies paranoia, Denies suicidal ideation and Denies tactile hallucinations Endocrine Endocrine: Reports system reviewed and no additional complaints, except as documented and Denies fatigue Hematologic/Lymphatic Hematologic/Lymphatic: Reports system reviewed and no additional complaints, except as documented and Denies lymphadenopathy Allergic/Immunologic Allergic/Immunologic: Reports system reviewed and no additional complaints, except as documented, Denies throat swelling, Denies urticaria and Denies wheezing Past Medical History Past Medical History NEUROLOGIC: Negative Neurological Disorders or Seizures CARDIAC: Positive Cardiac Disorders, Hypercholesterolemia and Hypertension; Negative Congestive Heart Failure RESPIRATORY: Negative Chronic Obstructive Pulmonary Disease (COPD) or Asthma GASTROINTESTINAL: Positive Gastrointestinal Disorders, Gall Bladder Disease, Diverticulosis, Gastroesophageal Reflux Disease and Obesity GENITOURINARY: Negative Genitourinary Disorders (born with one kidney) or Renal Disease MUSCULOSKELETAL: Positive Musculoskeletal Disorders and Arthritis ENDOCRINE: Positive Endocrine Disorders; Negative Diabetes Mellitus Type 1 or Diabetes Mellitus Type 2 HEMATOLOGIC: Negative Blood Disorders or Sickle Cell Disease PSYCHO/SOCIAL: Positive Depression and Anxiety OTHER HISTORY: Positive Chicken Pox, Measles and Mumps; Negative Hospitalization, Autoimmune Disease, Shingles, Blood Transfusions, Blood Transfusion Reaction, Anesthesia Reactions or Cancer Family History FAMILY HISTORY: Negative Family Psychiatric Problems, Family Respiratory Disorders, Family Cardiac Disorders, Family Gastrointestinal Problems, Family Cancer, Family Surgery or Family Anesthesia Reaction Surgical History SURGICAL: Positive Joint Replacement Social History SMOKING STATUS: Never smoker ED Exam General Limitations: Present no limitations General appearance: Present alert and in no apparent distress Head Head exam: Present atraumatic Eye Eye exam: Present normal appearance, PERRL and EOMI ENT ENT exam: Present normal exam, normal oropharynx and mucous membranes moist Neck Neck exam: Present normal inspection, full ROM and trachea midline Chest Chest inspection: Present normal inspection and symmetric chest wall rise Respiratory Respiratory exam: Present normal lung sounds bilaterally Cardiovascular Cardiovascular exam: Present regular rate, normal rhythm and normal heart sounds Abdominal Exam Abdominal exam: Present soft and normal bowel sounds; Absent distention, tenderness, guarding, rebound or rigidity Abdominal tenderness: Present epigastrium and mild Extremities Exam Extremities exam: Present normal inspection and full ROM Back Exam Back exam: Present normal inspection and full ROM Neurological Exam Neurological exam: Present alert, oriented X3 and CN II-XII intact Psychiatric Psychiatric exam: Present normal affect and normal mood Skin Skin exam: Present warm, dry, intact and normal color Course Quality Measures none Orders Category Date Time Status CT abdomen pelvis wo con Stat Exams 07/19/24 10:34 Completed CBC Stat Lab 07/19/24 11:13 Completed Comprehensive Metabolic Panel Stat Lab 07/19/24 11:13 Completed Lipase Stat Lab 07/19/24 11:13 Completed UA, C/S IF [Urinalysis, C/S if Indicated] Stat Lab 07/19/24 11:19 Completed mg Hyd/Al Hyd/Veronica Susp [Maalox Susp] Med 07/19/24 13:57 Discontinued 30 ml PO X1 ONE Vital Signs Vital signs: Vital Signs Temperature 98.5 F 07/19/24 10:15 Pulse Rate 62 07/19/24 10:15 Respiratory Rate 16 07/19/24 10:15 Blood Pressure 117/70 07/19/24 10:15 Pulse Oximetry (%) 98 07/19/24 10:15 Oxygen Delivery Method Room Air 07/19/24 10:15 O2 saturation 98% within normal limits Abdominal Pain MDM MDM Narrative MDM Narrative:: 68-year-old male with no known medical history presents to the emergency room with a chief complaint of nausea, vomiting, 6 out of 10 epigastric pain that began 2 weeks ago. Patient is hemodynamically stable and in no apparent distress Physical examination shows 6 out of 10 epigastric pain with palpation. There is no right lower quadrant left lower quadrant abdominal tenderness. CT of the abdomen and pelvis was completed and was negative for any acute findings. CBC CMP and urinalysis were within normal limits. Patient was educated to follow-up with his primary care provider and return to the emergency room for any evidence of worsening signs or symptoms. Patient data External records reviewed:: [facility] previous records Clinical information provided by:: patient Social determinants that could affect healthcare access:: none Patient has the following chronic illnesses:: No chronic illness How is presenting disease/condition affected by chronic disease/condition?: no chronic disease Evaluation data The following diagnostics were reviewed and interpreted by me:: lab results and radiology exam(s) Lab and/or radiology exams considered but not ordered:: Labs and radiology exams considered and ordered Interpretation Summary: CT abdomen and pelvis-Findings: No focal liver or splenic lesions Absent gallbladder No pancreatic or adrenal mass End-stage atrophic right kidney Severe scarring left kidney, mild perinephric stranding, no renal or ureteral calculi, no hydronephrosis Aortic calcification no aneurysmal dilatation Normal appendix No bowel obstruction No diverticulitis Abundant stool in the rectosigmoid Normal seminal vesicles No significant prostatomegaly Contracted urinary bladder Advanced degenerative disc disease L5-S1 IMPRESSION: End-stage atrophic right kidney Severe scarring left kidney, mild perinephric stranding, no renal or ureteral calculi, no hydronephrosis Normal appendix No bowel obstruction Medications / Prescriptions Medications or Prescriptions considered but not ordered:: Medication given Medication administrations:: Medication Administration History Discontinued Medications Al Hydrox/Mg Hydrox/Simethicone (Mg Hyd/Al Hyd/Veronica (Maalox Reg) Susp 30 Ml Udc) 30 ml PO X1 ONE Stop: 07/19/24 13:58 Rx given Consultations Consultation(s) initiated? (list below): No Diagnosis Differential diagnosis abdominal pain: acute appendicitis, constipation, diverticulitis, gastroenteritis and other (Gastritis) Most likely diagnosis given after review of the tests above:: Gastritis Admission Indicated Admission indicated?: not indicated Admission Request Was there a request for admission?: No Disposition Plan Disposition Plan: Discharge Discharge Attestation Discharge Attestation: The patient and all family members were given an opportunity to ask questions and understood the discharge instructions. Discharge instructions specifically effects, indications for sooner follow up or return to the emergency department, and the expected course of current diagnosis. Patient condition: Stable Discharge Plan Plan Patient Disposition: HOME (Self Care) Disposition Comment: Stable Prescriptions/Referrals Prescriptions/Med Rec: New omeprazole 20 mg capsule,delayed release(DR/EC) 20 mg PO QDAY Qty: 20 0RF No Action metoclopramide HCl 5 mg tablet 3 mg PO BID carvedilol 12.5 mg tablet 12.5 mg PO BID eszopiclone 3 mg tablet 3 mg PO HS Patient Comments: TOME 1 TABLETA POR V A ORAL TODOS LOS D AL ACOSTARSE Fish Oil (with DHA-EPA) Capsule 1 cap PO DAILY acetaminophen [Tylenol] 325 mg Capsule 650 mg PO Q8HR PRN (Reason: arthritis) simethicone 80 mg tablet,chewable 80 mg PO QDAY PRN (Reason: abdominal distention) 30 Days Qty: 30 0RF losartan 50 mg Tablet 100 mg PO DAILY Angie-Jericho 0.8 mg Tablet 1 tab PO QDAY quetiapine 150 mg Tablet 25 mg PO DAILY Referrals: Janusz Riggs MD [Primary Care Provider] - In 1 week Problem List Clinical Impression: Gastritis Patient/Caregiver Discharge Instructions Education Materials: Treating Gastritis, Understanding Gastritis, ED Gastritis (Adult) Additional Instructions: Lyn un seguimiento con ramirez proveedor de atenci?n primaria en las pr?ximas 24 a 48 horas. Ramirez an?lisis de karen y an?lisis de orina fueron negativos para cualquier hallazgo donte. Se complet? jonnathan tomograf?a computarizada de ramirez abdomen y pelvis y fue negativa para cualquier hallazgo donte. Lyn un seguimiento con ramirez proveedor de atenci?n primaria si sharlene s?ntomas contin?an y puede estar indicada jonnathan derivaci?n a un gastroenter?logo. El medicamento fue enviado a ramirez farmacia por favor rec?jalo y t?slater radha se indica. Si hay evidencia de signos o s?ntomas que empeoran, regrese a la fe de emergencias de inmediato. Print Language: Faroese Stand Alone Forms: Saima Award Info., Patient Portal Info Letter PA/AIRPLANE ELECTRICAL REPAIRER Supervising Physician PA/AIRPLANE ELECTRICAL REPAIRER Supervising Physician: Dr Trujillo
[2024-07-19] MEDS: MG HYD/AL HYD/SIME (Maalox Reg) SUSP 30 ML UDC PO (14:08)
== END 2024-07-19 14:32 | disposition home or self-care (01) ==
PROVIDERS: Nurse Practitioner Primary Care; Emergency Provider Emergency Medicine; PCP Family Medicine
DX: K29.70 Gastritis, unspecified, without bleeding (principal)
CPT/HCPCS: 36415; 74176; 80053; 81001; 83690; 85025; 99284; A9270

== ENCOUNTER → 2024-07-23 | Outpatient (CLI) | payer MEDICARE, MEDICAID, SELFPAY ==
--- NOTE | 2024-07-23 13:00 | XR_ITS ---
Examination: MRI lumbar spine without contrast Date and time of exam: August 02, 2024 at 1353 hrs. Indications: Lower back pain and burning sensation radiating down both legs 6 months, history colonic back pain with back surgery history Technique: Multiple MRI axial and sagittal sections lumbar spine. Sagittal T2-weighted images, TR 3500, TE 118 T1 weighted transverse sections, TR 688 T8.5, T2-weighted sagittal sections T1 weighted sagittal sections TR 621, TE 30 T2 axial sections, TR 4, 190, TE 84. Findings: Adequate alignment lumbar vertebral bodies on the lateral view Advanced disc narrowing L5-S1 Diffuse lumbar disc desiccation No lumbar fracture Moderate lumbar spondylosis No spondylolisthesis L5-S1 4 mm central lumbar disc bulge contiguous with the right and left S1 nerve roots as well as 5 mm left foraminal disc bulge producing mild left L5 ganglionic compression L4-L5 4 mm central lumbar disc bulge L3-L4 no disc protrusion L2-L3 no disc protrusion L1-L2 no disc protrusion Impression: Advanced degenerative disc disease L5-S1 L5-S1 4 mm central 5 mm left foraminal disc bulge contiguous with the right and left S1 nerve roots and producing mild left L5 ganglionic compression L4-L5 4 mm central lumbar disc bulge
== END | disposition home or self-care (01) ==
PROVIDERS: PCP Family Medicine; Referring Provider Chiropractor; Visit Provider Chiropractor
DX: M51.379 Other intervertebral disc degeneration, lumbosacral region without mention of lumbar back pain or lower extremity pain (principal); M51.369 Other intervertebral disc degeneration, lumbar region without mention of lumbar back pain or lower extremity pain; G95.20 Unspecified cord compression
CPT/HCPCS: 72148

== ENCOUNTER → 2024-07-26 | Outpatient (CLI) | payer MEDICARE, MEDICAID, SELFPAY ==
--- NOTE | 2024-07-26 11:06 | XR_ITS ---
Examination: Abdomen AP single view Technique: AP portable supine abdomen, single view Exam date and time: July 26, 2024 1226 hours INDICATIONS: Onset abdominal pain beginning 3 days ago FINDINGS: Moderate stool in the right and transverse colon No obstruction No free air Intact osseous structures IMPRESSION: Moderate stool in the right and transverse colon
[2024-07-26 13:16] LABS: Collection Type, Urine Clean Catch; Squamous Epithelial Cell,Urine 0 /hpf (0-5)
[2024-07-26 13:30] LABS: Basophils % (Auto) 1 % (0-2.5); Eosinophils # (Auto) 0.1 Thou/mm3 (0.0-0.5); Eosinophils % (Auto) 1 % (0-10); Hematocrit 41.4 % (41.0-53.0); Hemoglobin 13.8 g/dL (13.5-16.0); Immature Granulocytes % (Auto) 0 % (0-0); Immature Granulocytes Auto 0.03 Thou/mm3 (0.00-0.00); Lymphocytes # (Auto) 1.5 Thou/mm3 (1.0-4.8); Lymphocytes % (Auto) 17 % (10-50); Mean Corpuscular HGB Conc 33.3 g/dl (31.0-37.0); Mean Corpuscular Hemoglobin 29.9 pg (25.0-35.0); Mean Corpuscular Volume 90 fL (80-100); Monocytes # (Auto) 0.6 Thou/mm3 (0.0-0.8); Monocytes % (Auto) 7 % (0-12); Neutrophils # (Auto) 6.5 Thou/mm3 (1.8-7.7); Neutrophils % (Auto) 75 % (37-80); Nucleated Red Blood Cell % 0 /100 WBC (0); Platelet Count 222 Thou/mm3 (140-440); RDW Standard Deviation 42.5 fL (35.1-43.9); Red Blood Count 4.61 Miln/mm3 (4.50-5.90); White Blood Count 8.7 Thou/mm3 (3.8-10.6)
[2024-07-26 13:41] LABS: Bilirubin,Urine Negative (Negative); Blood,Urine Negative (Negative); Clarity,Urine Clear (Clear/Hazy); Color,Urine Lt-Yellow (Lt Yel-Yel); Glucose, Urine Negative (Negative); Ketones,Urine Negative (Negative); Leukocyte Esterase,Urine Negative (Negative); Nitrite,Urine Negative (Negative); PH,Urine 6.5 (5.0-7.0); Protein,Urine Negative (Neg - Trace); RBC,Urine < 1 /hpf (0-3); Specific Gravity,Urine 1.019 (1.001-1.035); Urobilinogen,Urine Negative mg/dL (0.0-1.0); WBC,Urine < 1 /hpf (0-5)
[2024-07-26 13:47] LABS: Alanine Aminotransferase 23 U/L (10-49); Albumin, Serum 4.2 gm/dL (3.4-4.8); Albumin/Globulin Ratio 1.8 (1.2-2.2); Alkaline Phosphatase 84 U/L (46-116); Amylase 112 U/L (30-118); Anion Gap 1 (7-16); Aspartate Amino Transferase 19 U/L (0-34); BUN/Creatinine Ratio 15 Ratio (12-20); Bilirubin,Total 0.6 mg/dL (0.3-1.2); Blood Urea Nitrogen 20 mg/dL (9-23); Calcium 9.5 mg/dL (8.3-10.6); Calcium (Corrected) 9.5 mg/dL (8.5-10.1); Carbon Dioxide 28.1 mMol/L (20.0-31.0); Chloride 106 mMol/L (98-107); Creatinine (Component) 1.3 mg/dL (0.6-1.3); Globulin 2.4 gm/dL (2.3-3.5); Glucose 152 mg/dL (74-106); Lipase 79 U/L (12-53); Osmolality,Calculated 275 (275-295); Potassium 4.3 mMol/L (3.4-5.1); Sodium 135 mMol/L (136-145); Total Protein 6.6 gm/dL (5.7-8.2); eGFR 59 See Note
== END | disposition home or self-care (01) ==
LOC: CDIM 10:37 → COPL 12:55
PROVIDERS: PCP Physician Assistant; Referring Provider Specialist; Visit Provider Radiology Diagnostic Radiology
DX: K59.00 Constipation, unspecified (principal); R14.0 Abdominal distension (gaseous); R10.30 Lower abdominal pain, unspecified
CPT/HCPCS: 36415; 74018; 80053; 81001; 82150; 83690; 85025

== ENCOUNTER 2024-08-16 10:46 | Emergency (ER) | payer MEDICARE, MEDICAID, SELFPAY ==
[2024-08-16 11:02] VITALS: BP 131/72; PULSE 60; RESP 18; TEMP 37.2; O2SAT 97; BMI 273.7
--- NOTE | 2024-08-16 11:02 | EDNOTE_ITS ---
ED Abdominal Pain RME/HPI General Chief Complaint: Abdominal Pain Stated complaint: LOWER ABD PAIN, FREQ URGE TO GO TO THE BATHROOM Time seen by provider: 08/16/24 11:03 Arrival date/time: 08/16/24 10:46 68-year-old male with no known medical history presents to the emergency room with a chief complaint of lower abdominal cramping, diarrhea x 2 days Source: patient Mode of arrival: ambulatory Limitations: no limitations Related Data Home Medications ?Medication ?Instructions ?Recorded ?Confirmed losartan 50 mg tablet 100 mg PO DAILY 10/16/22 vitamin B complex-vitamin C-folic 1 tab PO QDAY 07/04/24 acid 0.8 mg tablet (Angie-Jericho) quetiapine 150 mg tablet 25 mg PO DAILY 09/21/2306/16 acetaminophen 325 mg capsule 650 mg PO Q8HR PRN arthri tis 07/04/24 07/04/24 carvedilol 12.5 mg tablet 12.5 mg PO BID 07/04/2406/16 docosahexaenoic acid (dha)-epa 1 cap PO DAILY 07/04/24 07/04/24 capsule eszopiclone 3 mg tablet 3 mg PO HS 07/04/24 07/04/24 metoclopramide HCl 5 mg tablet 3 mg PO BID 07/04/24 Previous Rx's ?Medication ?Instructions ?Recorded omeprazole 20 mg capsule,delayed 20 mg PO QDAY #20 cap s 07/19/24 release loperamide 2 mg capsule 2 mg PO Q6H PRN loose stool #14 08/16/24 (Anti-Diarrheal (loperamide)) caps omeprazole 40 mg capsule,delayed 40 mg PO QDAY #14 cap s 08/16/24 release ondansetron 4 mg disintegrating 4 mg PO Q8H PRN nausea and 08/16/24 tablet vomiting #14 tabs Allergies Allergy/AdvReac Type Severity Reaction Status Date / Time [place] Allergy Intermediate COUGH Uncoded 08/16/24 10:53 Review of Systems Review of Systems Systems Reviewed: All systems reviewed, normal except as documented Constitutional Constitutional: Reports system reviewed and no additional complaints, except as documented, Denies fatigue, Denies fever(s), Denies headache(s) and Denies weakness Eyes Eyes: Reports system reviewed and no additional complaints, except as documented, Denies blurry vision and Denies change in vision ENT Ears, Nose, Mouth, and Throat: Reports system reviewed and no additional complaints, except as documented, Denies otalgia, Denies headache(s), Denies nasal congestion, Denies throat swelling and Denies vertigo Cardiovascular Cardiovascular: Reports system reviewed and no additional complaints, except as documented, Denies chest pain, Denies dyspnea and Denies dyspnea on exertion Respiratory Respiratory: Reports system reviewed and no additional complaints, except as documented, Denies chest congestion, Denies cough, Denies dyspnea, Denies dyspnea on exertion and Denies wheezing Gastrointestinal Gastrointestinal: Reports system reviewed and no additional complaints, except as documented, Reports abdominal pain, Reports cramping, Reports diarrhea, Denies nausea and Denies vomiting Genitourinary Genitourinary: Reports system reviewed and no additional complaints, except as documented, Denies dysuria and Denies hematuria Musculoskeletal Musculoskeletal: Reports system reviewed and no additional complaints, except as documented and Denies back pain Integumentary/Breasts Skin/Breast: Reports system reviewed and no additional complaints, except as documented and Denies wounds Neurologic Neurologic: Reports system reviewed and no additional complaints, except as documented, Denies confusion, Denies headache(s), Denies lack of coordination, Denies vertigo and Denies weakness Psychiatric Psychiatric: Reports system reviewed and no additional complaints, except as documented, Denies anxiety, Denies confusion, Denies depression, Denies paranoia, Denies suicidal ideation and Denies tactile hallucinations Endocrine Endocrine: Reports system reviewed and no additional complaints, except as documented and Denies fatigue Hematologic/Lymphatic Hematologic/Lymphatic: Reports system reviewed and no additional complaints, except as documented and Denies lymphadenopathy Allergic/Immunologic Allergic/Immunologic: Reports system reviewed and no additional complaints, except as documented, Denies throat swelling, Denies urticaria and Denies wheezing Past Medical History Past Medical History NEUROLOGIC: Negative Neurological Disorders or Seizures CARDIAC: Positive Cardiac Disorders, Hypercholesterolemia and Hypertension; Negative Congestive Heart Failure RESPIRATORY: Negative Chronic Obstructive Pulmonary Disease (COPD) or Asthma GASTROINTESTINAL: Positive Gastrointestinal Disorders, Gall Bladder Disease, Diverticulosis, Gastroesophageal Reflux Disease and Obesity GENITOURINARY: Negative Genitourinary Disorders (born with one kidney) or Renal Disease MUSCULOSKELETAL: Positive Musculoskeletal Disorders and Arthritis ENDOCRINE: Positive Endocrine Disorders; Negative Diabetes Mellitus Type 1 or Diabetes Mellitus Type 2 HEMATOLOGIC: Negative Blood Disorders or Sickle Cell Disease PSYCHO/SOCIAL: Positive Depression and Anxiety OTHER HISTORY: Positive Chicken Pox, Measles and Mumps; Negative Hospitalization, Autoimmune Disease, Shingles, Blood Transfusions, Blood Transfusion Reaction, Anesthesia Reactions or Cancer Family History FAMILY HISTORY: Negative Family Psychiatric Problems, Family Respiratory Disorders, Family Cardiac Disorders, Family Gastrointestinal Problems, Family Cancer, Family Surgery or Family Anesthesia Reaction Surgical History SURGICAL: Positive Joint Replacement Social History SMOKING STATUS: Never smoker ED Exam General Limitations: Present no limitations General appearance: Present alert and in no apparent distress Head Head exam: Present atraumatic Eye Eye exam: Present normal appearance, PERRL and EOMI ENT ENT exam: Present normal exam, normal oropharynx and mucous membranes moist Neck Neck exam: Present normal inspection, full ROM and trachea midline Chest Chest inspection: Present normal inspection and symmetric chest wall rise Respiratory Respiratory exam: Present normal lung sounds bilaterally Cardiovascular Cardiovascular exam: Present regular rate, normal rhythm and normal heart sounds Abdominal Exam Abdominal exam: Present soft, tenderness and normal bowel sounds; Absent distention, guarding, rebound or rigidity Abdominal tenderness: Present diffuse and mild Extremities Exam Extremities exam: Present normal inspection and full ROM Back Exam Back exam: Present normal inspection and full ROM Neurological Exam Neurological exam: Present alert, oriented X3 and CN II-XII intact Psychiatric Psychiatric exam: Present normal affect and normal mood Skin Skin exam: Present warm, dry, intact and normal color Course Quality Measures none Orders Category Date Time Status CBC Stat Lab 08/16/24 11:21 Completed CMP [Comprehensive Metabolic Panel] Stat Lab 08/16/24 11:21 Completed Lipase Stat Lab 08/16/24 11:21 Completed UA [Urinalysis] Stat Lab 08/16/24 11:32 Completed Urine Culture Stat Lab 08/16/24 11:32 Received Vital Signs Vital signs: Vital Signs Temperature 98.9 F 08/16/24 11:02 Pulse Rate 60 08/16/24 11:02 Respiratory Rate 18 08/16/24 11:02 Blood Pressure 131/72 H 08/16/24 11:02 Pulse Oximetry (%) 97 08/16/24 11:02 Oxygen Delivery Method Room Air 08/16/24 11:02 O2 saturation 97% within normal limits Abdominal Pain MDM MDM Narrative MDM Narrative:: 68-year-old male with no known medical history presents to the emergency room with a chief complaint of lower abdominal cramping, diarrhea x 2 days Patient is hemodynamically stable and in no apparent distress Physical examination shows mild diffuse abdominal tenderness and cramping that the patient states is a 4 out of 10. Patient is also having multiple episodes of diarrhea. CBC CMP were negative for any acute findings. Urinalysis was negative. Patient was discharged and educated to follow-up with his primary care provider and return to the emergency room for any evidence of worsening signs or symptoms Patient data External records reviewed:: [facility] previous records Clinical information provided by:: patient Social determinants that could affect healthcare access:: none Patient has the following chronic illnesses:: No chronic illness How is presenting disease/condition affected by chronic disease/condition?: no chronic disease Evaluation data The following diagnostics were reviewed and interpreted by me:: lab results and radiology exam(s) Lab and/or radiology exams considered but not ordered:: Labs and radiology exams considered and ordered Interpretation Summary: N/A Medications / Prescriptions Medications or Prescriptions considered but not ordered:: Medication given Medication administrations:: Rx given Consultations Consultation(s) initiated? (list below): No Diagnosis Differential diagnosis abdominal pain: abdominal pain, constipation, diverticulitis, gastroenteritis and small bowel obstruction Most likely diagnosis given after review of the tests above:: Gastroenteritis Admission Indicated Admission indicated?: not indicated Admission Request Was there a request for admission?: No Disposition Plan Disposition Plan: Discharge Discharge Attestation Discharge Attestation: The patient and all family members were given an opportunity to ask questions and understood the discharge instructions. Discharge instructions specifically effects, indications for sooner follow up or return to the emergency department, and the expected course of current diagnosis. Patient condition: Stable Discharge Plan Plan Patient Disposition: HOME (Self Care) Disposition Comment: Stable Prescriptions/Referrals Prescriptions/Med Rec: New loperamide [Anti-Diarrheal (loperamide)] 2 mg capsule 2 mg PO Q6H PRN (Reason: loose stool) Qty: 14 0RF ondansetron 4 mg tablet,disintegrating 4 mg PO Q8H PRN (Reason: nausea and vomiting) Qty: 14 0RF omeprazole 40 mg capsule,delayed release(DR/EC) 40 mg PO QDAY Qty: 14 0RF No Action metoclopramide HCl 5 mg tablet 3 mg PO BID carvedilol 12.5 mg tablet 12.5 mg PO BID eszopiclone 3 mg tablet 3 mg PO HS Patient Comments: TOME 1 TABLETA POR V A ORAL TODOS LOS D AL ACOSTARSE Fish Oil (with DHA-EPA) Capsule 1 cap PO DAILY acetaminophen [Tylenol] 325 mg Capsule 650 mg PO Q8HR PRN (Reason: arthritis) omeprazole 20 mg capsule,delayed release(DR/EC) 20 mg PO QDAY Qty: 20 0RF losartan 50 mg Tablet 100 mg PO DAILY Angie-Jericho 0.8 mg Tablet 1 tab PO QDAY quetiapine 150 mg Tablet 25 mg PO DAILY Referrals: Mukesh Rubin [Primary Care Provider] - In 1 week Problem List Clinical Impression: Gastroenteritis Patient/Caregiver Discharge Instructions Education Materials: ED Gastroenteritis, Noninfectious Additional Instructions: Por favor, consulte con ramirez m?dico de cabecera en las pr?ximas 24 a 48 horas. Se envi? el medicamento a ramirez farmacia, rec?jalo y t?slater radha se le indic?. Ramirez an?lisis de karen y orina dieron negativo en cuanto a cualquier hallazgo donte o infecci?n. Si hay evidencia de empeoramiento de los signos o s?ntomas, regrese a la fe de emergencias de inmediato. Print Language: Turkish Stand Alone Forms: Saima Award Info., Patient Portal Info Letter PA/TWINE REELING MACHINE OPERATOR Supervising Physician PA/TWINE REELING MACHINE OPERATOR Supervising Physician: Dr. Arndt
[2024-08-16 11:34] LABS: Basophils % (Auto) 0 % (0-2.5); Eosinophils # (Auto) 0.1 Thou/mm3 (0.0-0.5); Eosinophils % (Auto) 1 % (0-10); Hematocrit 38.8 % (41.0-53.0); Hemoglobin 13.6 g/dL (13.5-16.0); Immature Granulocytes % (Auto) 1 % (0-0); Immature Granulocytes Auto 0.06 Thou/mm3 (0.00-0.00); Lymphocytes # (Auto) 1.6 Thou/mm3 (1.0-4.8); Lymphocytes % (Auto) 17 % (10-50); Mean Corpuscular HGB Conc 35.1 g/dl (31.0-37.0); Mean Corpuscular Hemoglobin 30.3 pg (25.0-35.0); Mean Corpuscular Volume 86 fL (80-100); Monocytes # (Auto) 0.8 Thou/mm3 (0.0-0.8); Monocytes % (Auto) 8 % (0-12); Neutrophils # (Auto) 6.7 Thou/mm3 (1.8-7.7); Neutrophils % (Auto) 73 % (37-80); Nucleated Red Blood Cell % 0 /100 WBC (0); Platelet Count 270 Thou/mm3 (140-440); RDW Standard Deviation 39.5 fL (35.1-43.9); Red Blood Count 4.49 Miln/mm3 (4.50-5.90); White Blood Count 9.1 Thou/mm3 (3.8-10.6)
[2024-08-16 11:45] LABS: Collection Type, Urine Clean Catch; Squamous Epithelial Cell,Urine 0 /hpf (0-5)
[2024-08-16 11:53] LABS: Anion Gap 6 (7-16); BUN/Creatinine Ratio 15 Ratio (12-20); Blood Urea Nitrogen 15 mg/dL (9-23); Carbon Dioxide 26.9 mMol/L (20.0-31.0); Chloride 97 mMol/L (98-107); Estimated Creatinine Clearance 330.7 mL/min (>60); Glucose 109 mg/dL (74-106); Potassium 4.2 mMol/L (3.4-5.1); Sodium 130 mMol/L (136-145); eGFR > 60 See Note
[2024-08-16 11:54] LABS: Alanine Aminotransferase 25 U/L (10-49); Albumin, Serum 4.1 gm/dL (3.4-4.8); Albumin/Globulin Ratio 1.6 (1.2-2.2); Alkaline Phosphatase 81 U/L (46-116); Aspartate Amino Transferase 27 U/L (0-34); Bilirubin,Total 0.7 mg/dL (0.3-1.2); Calcium 9.5 mg/dL (8.3-10.6); Calcium (Corrected) 9.5 mg/dL (8.5-10.1); Globulin 2.6 gm/dL (2.3-3.5); Lipase 93 U/L (12-53); Osmolality,Calculated 262 (275-295); Total Protein 6.7 gm/dL (5.7-8.2)
[2024-08-16 11:58] LABS: Bilirubin,Urine Negative (Negative); Blood,Urine Negative (Negative); Clarity,Urine Clear (Clear/Hazy); Color,Urine Lt-Yellow (Lt Yel-Yel); Glucose, Urine Negative (Negative); Ketones,Urine Negative (Negative); Leukocyte Esterase,Urine Negative (Negative); Nitrite,Urine Negative (Negative); PH,Urine 6.5 (5.0-7.0); Protein,Urine Negative (Neg - Trace); RBC,Urine 1 /hpf (0-3); Specific Gravity,Urine 1.016 (1.001-1.035); Urobilinogen,Urine Negative mg/dL (0.0-1.0); WBC,Urine < 1 /hpf (0-5)
== END 2024-08-16 13:09 | disposition home or self-care (01) ==
PROVIDERS: Nurse Practitioner Family; Emergency Provider Emergency Medicine; PCP Physician Assistant
DX: K52.9 Noninfective gastroenteritis and colitis, unspecified (principal)
CPT/HCPCS: 36415; 80053; 81001; 83690; 85025; 87086; 99283

== ENCOUNTER 2024-09-29 07:36 | Emergency (ER) | payer MEDICARE, MEDICAID, SELFPAY ==
[2024-09-29 07:37] VITALS: BMI 23.3
[2024-09-29 07:46] VITALS: BP 99/68; PULSE 70; RESP 16; TEMP 36.7; O2SAT 98
--- NOTE | 2024-09-29 08:02 | PD.EDRME ---
Rapid Medical Screening Exam E Arrival date/time: 09/29/24 07:36 69-year-old male presents to the emergency department with complaints of left lower quadrant abdominal pain x 2 weeks. Also reports decreased appetite. I have greeted and performed a focused initial assessment of this patient. Initial appropriate labs ordered at this time. A comprehensive ED assessment and evaluation of the patient and analysis of all test and completion of medical decision making process will be conducted by additional ED provider. Chief Complaint: Abdominal Pain Time Seen by Provider: 09/29/24 07:41 Vital signs: Vital Signs Temperature 98.0 F 09/29/24 07:46 Pulse Rate 70 09/29/24 07:46 Respiratory Rate 16 09/29/24 07:46 Blood Pressure 99/68 09/29/24 07:46 Pulse Oximetry (%) 98 09/29/24 07:46 Oxygen Delivery Method Room Air 09/29/24 07:46
--- NOTE | 2024-09-29 08:03 | EKG_ITS ---
[facility] Test Date: 2024-09-29 Pat Name: MAREN KONGDepartment: Room: - Gender: Male Communication Manager: : 1955 Requested By: Renay Lewis ([facility]) Servando Order Number: [id number] Reading MD: Renay Lewis ([facility]) Servando Measurements Intervals [place] Rate: 66 P: 47 SD: 142 QRS: -21 QRSD: 85 T: 187 QT: 374 QTc: 394 Interpretive Statements SINUS RHYTHM BORDERLINE LEFT AXIS DEVIATION [QRS AXIS < -20] ST DEVIATION AND MODERATE T-WAVE ABNORMALITY, CONSIDER ANTEROLATERAL ISCHEMIA [-0.1+ mV T-WAVE IN V3-V6] Compared to ECG 07/04/2024 09:25:49 Sinus bradycardia no longer present T-wave abnormality still present Possible ischemia still present /store/S0/[id number]/ecg/[id number].pdf
[2024-09-29 08:31] LABS: Collection Type, Urine Clean Catch
[2024-09-29 08:36] VITALS: BP 126/73; PULSE 61; RESP 18; TEMP 37; O2SAT 99
[2024-09-29 08:37] LABS: Bilirubin,Urine Negative (Negative); Blood,Urine Negative (Negative); Clarity,Urine Clear (Clear/Hazy); Color,Urine Yellow (Lt Yel-Yel); Glucose, Urine Negative (Negative); Ketones,Urine Negative (Negative); Leukocyte Esterase,Urine Negative (Negative); Nitrite,Urine Negative (Negative); Protein,Urine 1+ (Neg - Trace); RBC,Urine < 1 /hpf (0-3); Specific Gravity,Urine 1.021 (1.001-1.035); Squamous Epithelial Cell,Urine < 1 /hpf (0-5); Urobilinogen,Urine Negative mg/dL (0.0-1.0); WBC,Urine 1 /hpf (0-5)
[2024-09-29 09:10] LABS: Basophils # (Auto) 0.1 Thou/mm3 (0.0-0.2); Basophils % (Auto) 1 % (0-2.5); Eosinophils # (Auto) 0.1 Thou/mm3 (0.0-0.5); Eosinophils % (Auto) 2 % (0-10); Hematocrit 38.4 % (41.0-53.0); Immature Granulocytes % (Auto) 0 % (0-0); Immature Granulocytes Auto 0.02 Thou/mm3 (0.00-0.00); Lymphocytes % (Auto) 14 % (10-50); Mean Corpuscular HGB Conc 33.9 g/dl (31.0-37.0); Mean Corpuscular Hemoglobin 30.8 pg (25.0-35.0); Mean Corpuscular Volume 91 fL (80-100); Monocytes # (Auto) 0.6 Thou/mm3 (0.0-0.8); Monocytes % (Auto) 9 % (0-12); Neutrophils # (Auto) 5.3 Thou/mm3 (1.8-7.7); Neutrophils % (Auto) 75 % (37-80); Nucleated Red Blood Cell % 0 /100 WBC (0); Platelet Count 220 Thou/mm3 (140-440); RDW Standard Deviation 42.3 fL (35.1-43.9); Red Blood Count 4.22 Miln/mm3 (4.50-5.90); White Blood Count 7.1 Thou/mm3 (3.8-10.6)
--- NOTE | 2024-09-29 09:10 | XR_ITS ---
Examination: CT abdomen with intravenous contrast CT pelvis with intravenous contrast 2-D coronal reconstructions 2-D sagittal reconstructions Date and time of exam:September 29, 2024 1053 hours Comparison July 19, 2024 INDICATIONS: Left lower abdominal pain beginning 2 weeks ago, clinical diagnosis diverticulitis COMPARISON: July 19, 2024. CTDI: vol (mGy) 7.57 DLP: (mGycm) 150 Technique: Multiple axial sections of the abdomen and pelvis have been obtained. 64 slice high-resolution scanner used. 3 mm axial sections have been obtained, post intravenous injection 60 cc [id number] 2-D sagittal, coronal reconstructions obtained. Low dose protocols were performed. One or more of the following dose reduction techniques were used; automated exposure control, adjustment of the mA and/or KV according to patient size, use of iterative reconstruction technique. Findings: No focal liver or splenic lesions Absent gallbladder No common hepatic or common bile duct stones No pancreatic or adrenal mass Significant scarring left kidney Severely atrophic right kidney Abdominal aortic calcification no aneurysmal dilatation No bowel obstruction No diverticulitis Contracted urinary bladder with urinary bladder wall thickening Transverse prostate dimension 4.7 cm Prominent osteopenia Advanced disc narrowing L5-S1 IMPRESSION: Significant scarring left kidney No bowel obstruction or diverticulitis Moderate prostatomegaly Urinary bladder wall thickening up to 5 mm, consider cystitis
[2024-09-29 09:40] LABS: Alanine Aminotransferase 17 U/L (10-49); Albumin, Serum 3.9 gm/dL (3.4-4.8); Albumin/Globulin Ratio 1.6 (1.2-2.2); Alkaline Phosphatase 86 U/L (46-116); Anion Gap 7 (7-16); Aspartate Amino Transferase 19 U/L (0-34); BUN/Creatinine Ratio 10 Ratio (12-20); Bilirubin,Total 0.7 mg/dL (0.3-1.2); Blood Urea Nitrogen 11 mg/dL (9-23); Calcium 9.3 mg/dL (8.3-10.6); Calcium (Corrected) 9.4 mg/dL (8.5-10.1); Carbon Dioxide 27.2 mMol/L (20.0-31.0); Chloride 106 mMol/L (98-107); Creatinine (Component) 1.1 mg/dL (0.6-1.3); Estimated Creatinine Clearance 54.4 mL/min (>60); Globulin 2.4 gm/dL (2.3-3.5); Glucose 173 mg/dL (74-106); Osmolality,Calculated 282 (275-295); Potassium 3.9 mMol/L (3.4-5.1); Sodium 140 mMol/L (136-145); Total Protein 6.3 gm/dL (5.7-8.2); eGFR > 60 See Note
--- NOTE | 2024-09-29 10:18 | PC.NURSE ---
PT UNHOOKED FROM [facility]IT[facility] TO GO TO [facility]. PT INDEPENDENT W/STEADY GAIT TO [facility].
[2024-09-29] MEDS: MG HYD/AL HYD/SIME (Maalox Reg) SUSP 30 ML UDC PO (10:30)
[2024-09-29] MEDS: DICYCLOMINE 10 MG CAPSULE PO (10:30)
[2024-09-29] MEDS: LIDOCAINE VISCOUS 2% 15 ML UDC 10 ML PO (10:30)
[2024-09-29] MEDS: ACETAMINOPHEN 325 MG TABLET 650 MG PO (10:30)
[2024-09-29 10:41] VITALS: BP 114/77; PULSE 65; RESP 17; TEMP 37.1; O2SAT 100
--- NOTE | 2024-09-29 10:52 | PD.EDABDPN ---
ED Abdominal Pain RME/HPI General Chief Complaint: Abdominal Pain Stated complaint: LLQ ABD PAIN X2 WEEKS Time seen by provider: 09/29/24 07:41 Arrival date/time: 09/29/24 07:36 RME / HPI RME / HPI narrative: 09/29/24 07:36 69-year-old male presents to the emergency department with complaints of left lower quadrant abdominal pain x 2 weeks. Also reports decreased appetite. I have greeted and performed a focused initial assessment of this patient. Initial appropriate labs ordered at this time. A comprehensive ED assessment and evaluation of the patient and analysis of all test and completion of medical decision making process will be conducted by additional ED provider. DR. VILLATORO MAIN ED EVALUATION: 69 year old male with history of hypertension presents to the ED for evaluation of abdominal pain today. Reports pain began two weeks ago, occurring daily, and worsening in the last 2 days. Described as aching in sensation that is located most to the left lower quadrant that occasionally migrates to the right side, rating as moderate. Accompanied by feeling bloated after eating and urge to defecate often. Reportedly consulted with PCP last week who prescribed medications for pain however states no diagnostics were performed. Patient states he has had similar abdominal pain on/off for several months and was last evaluated here 06/2024 where he was diagnosed with gas and prescribed medications. Last colonoscopy performed 3 years ago and normal per patient. Denies any black or bloody stools. Denies fevers, chills, sweats, chest pain, cough, shortness of breath, or urinary symptoms. Related Data Home Medications ?Medication ?Instructions ?Recorded ?Confirmed losartan 50 mg tablet 100 mg PO DAILY 10/16/22 07/04/24 vitamin B complex-vitamin C-folic 1 tab PO QDAY 10/16/22 07/04/24 acid 0.8 mg tablet (Angie-Jericho) quetiapine 150 mg tablet 25 mg PO DAILY 09/21/23 07/04/24 acetaminophen 325 mg capsule 650 mg PO Q8HR PRN arthritis 07/04/24 07/04/24 carvedilol 12.5 mg tablet 12.5 mg PO BID 07/04/24 07/04/24 docosahexaenoic acid (dha)-epa 1 cap PO DAILY 07/04/24 07/04/24 capsule eszopiclone 3 mg tablet 3 mg PO HS 07/04/24 07/04/24 metoclopramide HCl 5 mg tablet 3 mg PO BID 07/04/24 07/04/24 Previous Rx's ?Medication ?Instructions ?Recorded omeprazole 20 mg capsule,delayed 20 mg PO QDAY #20 caps 07/19/24 release loperamide 2 mg capsule 2 mg PO Q6H PRN loose stool #14 08/16/24 (Anti-Diarrheal (loperamide)) caps omeprazole 40 mg capsule,delayed 40 mg PO QDAY #14 caps 08/16/24 release ondansetron 4 mg disintegrating 4 mg PO Q8H PRN nausea and 08/16/24 tablet vomiting #14 tabs Allergies Allergy/AdvReac Type Severity Reaction Status Date / Time [place] Allergy Intermediate COUGH Uncoded 09/29/24 07:40 Review of Systems Review of Systems Narrative Review of Systems: Gen: No fever, no chills, no weight loss EYES: No discharge, no visual changes, no pain HEENT: No ear pain, no congestion, no sore throat PULM: no shortness of breath, no cough, no congestion CV: No chest pain, no dyspnea on exertion, no palpitations, no chest tightness GI: No nausea, no vomiting, no diarrhea, +pain, +bloating sensation after meals, +urge to defecate frequently, no constipation : No frequency, no urgency,? no dysuria Musc/skel: No joint pain, no back pain Skin: No rash, no ecchymosis, no lesions Neuro: No weakness, no headache Past Medical History Past Medical History CARDIAC: Positive Hypercholesterolemia and Hypertension GASTROINTESTINAL: Positive Gastrointestinal Disorders, Gall Bladder Disease, Diverticulosis, Gastroesophageal Reflux Disease and Obesity MUSCULOSKELETAL: Positive Musculoskeletal Disorders and Arthritis ENDOCRINE: Positive Endocrine Disorders and Diabetes Mellitus Type 2 PSYCHO/SOCIAL: Positive Depression and Anxiety OTHER HISTORY: Positive Chicken Pox, Measles and Mumps Family History FAMILY HISTORY: Negative Family Psychiatric Problems, Family Respiratory Disorders, Family Cardiac Disorders, Family Gastrointestinal Problems, Family Cancer, Family Surgery or Family Anesthesia Reaction Surgical History SURGICAL: Positive Joint Replacement Social History SMOKING STATUS: Never smoker ED Exam Narrative Physical exam: GENERAL APPEARANCE: AxOx4, no obvious distress, nontoxic appearing HEENT: NC, AT. MMM. EOMI, clear conjunctiva, oropharynx clear. NECK: Supple without lymphadenopathy. No stiffness or restricted ROM. HEART: Normal rate and regular rhythm, normal S1/S1, no m/r/g LUNGS: CTAB, moving air well. No crackles or wheezes are heard. ABDOMEN: Soft, left lateral abdominal pain to palpation, nondistended with good bowel sounds heard. BACK: No midline C/T/L spine pain or deformity, No CVAT, no obvious deformity. EXTREMITIES: Without cyanosis, clubbing or edema. MUSCULOSKELETAL: FROM of all major joints, no chest tenderness NEUROLOGICAL: Grossly nonfocal. Alert and oriented, moving all 4 extremities. CN not formally tested but appear grossly intact. Skin: Warm and dry without any rash. Course Quality Measures none Orders Category Date Time Status CT Screening NOW Care 09/29/24 09:10 Active EKG (ED ONLY) *Do not use* NOW Care 09/29/24 08:03 Completed NPO STAT Care 09/29/24 08:[address] abdomen pelvis w con Stat Exams 09/29/24 09:10 Completed EKG (ED Only) Stat Exams 09/29/24 08:03 Draft CBC Stat Lab 09/29/24 08:59 Completed Comprehensive Metabolic Panel Stat Lab 09/29/24 08:59 Completed Urinalysis Stat Lab 09/29/24 08:27 Completed Acetaminophen Tab [Tylenol Tab] Med 09/29/24 10:12 Discontinued 650 mg PO X1 ONE Dicyclomine [Bentyl] Med 09/29/24 10:12 Discontinued 10 mg PO X1 ONE Lidocaine 2% Viscous [Xylocaine 2% Viscous] Med 09/29/24 09:09 Discontinued 10 ml PO X1 ONE mg Hyd/Al Hyd/Veronica Susp [Maalox Susp] Med 09/29/24 09:09 Discontinued 30 ml PO X1 ONE Reevaluation(s) Reevaluation #1: Patient remains clinically stable throughout the emergency department visit. We reviewed all the results, analysis, and treatment plans. Patient is amenable to discharge. Strict return precautions were outlined. Patient was discharged in stable condition. Time: 12:00 Vital Signs Vital signs: Vital Signs Temperature 98.0 F 09/29/24 07:46 Pulse Rate 70 09/29/24 07:46 Respiratory Rate 16 09/29/24 07:46 Blood Pressure 99/68 09/29/24 07:46 Pulse Oximetry (%) 98 09/29/24 07:46 Oxygen Delivery Method Room Air 09/29/24 07:46 Pulse ox is 98% on room air which is adequate. Abdominal Pain MDM MDM Narrative MDM Narrative:: IJoycelyn, shy scribing for and in the presence of Dr. Villatoro. I reviewed CT abdomen/pelvis from 1 year ago showing solitary left kidney, no diverticulosis or chronic findings. Patient data External records reviewed:: [facility] previous records (I reviewed ED visit on 08/16/2024 ) Clinical information provided by:: patient Social determinants that could affect healthcare access:: none Patient has the following chronic illnesses:: Hypertension, gastritis on Omeprazole How is presenting disease/condition affected by chronic disease/condition?: exacerbated by Evaluation data The following diagnostics were reviewed and interpreted by me:: lab results, radiology exam(s) and EKG tracing(s) (EKG at 08:09 AM shows sinus rhythm, rate 66, no acute ischemic changes, no STEMI. ) Lab and/or radiology exams considered but not ordered:: None Interpretation Summary: Ordering Physician: Fuad Villatoro MD Date of Service: 09/29/24 Procedure(s): CT abdomen pelvis w con Accession Number(s): [id number] cc: Mukesh Haines; Fuad Villatoro MD; Joselo Mercedes MD~ Examination: CT abdomen with intravenous contrast CT pelvis with intravenous contrast 2-D coronal reconstructions 2-D sagittal reconstructions Date and time of exam:September 29, 2024 1053 hours Comparison July 19, 2024 INDICATIONS: Left lower abdominal pain beginning 2 weeks ago, clinical diagnosis diverticulitis COMPARISON: July 19, 2024. CTDI: vol (mGy) 7.57 DLP: (mGycm) 150 Technique: Multiple axial sections of the abdomen and pelvis have been obtained. 64 slice high-resolution scanner used. 3 mm axial sections have been obtained, post intravenous injection 60 cc [id number] 2-D sagittal, coronal reconstructions obtained. Low dose protocols were performed. One or more of the following dose reduction techniques were used; automated exposure control, adjustment of the mA and/or KV according to patient size, use of iterative reconstruction technique. Findings: No focal liver or splenic lesions Absent gallbladder No common hepatic or common bile duct stones No pancreatic or adrenal mass Significant scarring left kidney Severely atrophic right kidney Abdominal aortic calcification no aneurysmal dilatation No bowel obstruction No diverticulitis Contracted urinary bladder with urinary bladder wall thickening Transverse prostate dimension 4.7 cm Prominent osteopenia Advanced disc narrowing L5-S1 IMPRESSION: Significant scarring left kidney No bowel obstruction or diverticulitis Moderate prostatomegaly Urinary bladder wall thickening up to 5 mm, consider cystitis Dictated By: Joselo Mercedes MD Signed By: <Electronically signed by Joselo Mercedes MD in OV> 09/29/24 1132 Medications / Prescriptions Medications or Prescriptions considered but not ordered:: None Medication administrations:: Medication Administration History Discontinued Medications Acetaminophen (Acetaminophen 325 Mg Tablet) 650 mg PO X1 ONE Stop: 09/29/24 10:13 Last Admin: 09/29/24 10:30 Dose: 650 mg Documented By: TM Al Hydrox/Mg Hydrox/Simethicone (Mg Hyd/Al Hyd/Veronica (Maalox Reg) Susp 30 Ml Udc) 30 ml PO X1 ONE Stop: 09/29/24 09:10 Last Admin: 09/29/24 10:30 Dose: 30 ml Documented By: TM Dicyclomine HCl (Dicyclomine 10 Mg Capsule) 10 mg PO X1 ONE Stop: 09/29/24 10:13 Last Admin: 09/29/24 10:30 Dose: 10 mg Documented By: TM Lidocaine HCl (Lidocaine Viscous 2% 15 Ml Udc) 10 ml PO X1 ONE Stop: 09/29/24 09:10 Last Admin: 09/29/24 10:30 Dose: 10 ml Documented By: TM See above Consultations Consultation(s) initiated? (list below): No Diagnosis Differential diagnosis abdominal pain: abdominal pain, calculus of kidney, constipation, diverticulitis, gastroenteritis, pancreatitis and small bowel obstruction Most likely diagnosis given after review of the tests above:: Chronic abdominal pain Admission Indicated Admission indicated?: not indicated Explain why admission is indicated or not indicated:: Does not meet admission criteria Admission Request Was there a request for admission?: No Disposition Plan Disposition Plan: Discharge Discharge Attestation Discharge Attestation: The patient and all family members were given an opportunity to ask questions and understood the discharge instructions. Discharge instructions specifically effects, indications for sooner follow up or return to the emergency department, and the expected course of current diagnosis. Patient condition: Stable Discharge Plan Plan Patient Disposition: HOME (Self Care) Prescriptions/Referrals Prescriptions/Med Rec: No Action metoclopramide HCl 5 mg tablet 3 mg PO BID carvedilol 12.5 mg tablet 12.5 mg PO BID eszopiclone 3 mg tablet 3 mg PO HS Patient Comments: TOME 1 TABLETA POR V A ORAL TODOS LOS D AL ACOSTARSE Fish Oil (with DHA-EPA) Capsule 1 cap PO DAILY acetaminophen [Tylenol] 325 mg Capsule 650 mg PO Q8HR PRN (Reason: arthritis) omeprazole 20 mg capsule,delayed release(DR/EC) 20 mg PO QDAY Qty: 20 0RF losartan 50 mg Tablet 100 mg PO DAILY Angie-Jericho 0.8 mg Tablet 1 tab PO QDAY quetiapine 150 mg Tablet 25 mg PO DAILY loperamide [Anti-Diarrheal (loperamide)] 2 mg capsule 2 mg PO Q6H PRN (Reason: loose stool) Qty: 14 0RF ondansetron 4 mg tablet,disintegrating 4 mg PO Q8H PRN (Reason: nausea and vomiting) Qty: 14 0RF omeprazole 40 mg capsule,delayed release(DR/EC) 40 mg PO QDAY Qty: 14 0RF Problem List Clinical Impression: Chronic abdominal pain Patient/Caregiver Discharge Instructions Education Materials: ED Chronic Pain Additional Instructions: Consulte con fajardo m?dico de cabecera para jonnathan posible derivaci?n al gastroenter?logo. Puede regresar a urgencias antes si los s?ntomas empeoran o si nota alg?n problema nuevo o preocupante. Print Language: Angolan Stand Alone Forms: Saima Award Info., Patient Portal Info Letter
--- NOTE | 2024-09-29 11:10 | PC.NURSE ---
BACK IN ROOM FROM CT
== END 2024-09-29 12:30 | disposition home or self-care (01) ==
PROVIDERS: Nurse Practitioner Primary Care; Emergency Provider Emergency Medicine; PCP Physician Assistant
DX: N28.89 Other specified disorders of kidney and ureter (principal); N40.0 Benign prostatic hyperplasia without lower urinary tract symptoms; N32.89 Other specified disorders of bladder; R94.31 Abnormal electrocardiogram [ECG] [EKG]; I10 Essential (primary) hypertension
CPT/HCPCS: 36415; 74177; 80053; 81001; 83690; 83735; 84484; 85025; 85610; 93005; 99285; A4649; J3490; Q9967; A9270

== ENCOUNTER → 2024-10-27 | Outpatient (CLI) | payer MEDICARE, MEDICAID, SELFPAY ==
--- NOTE | 2024-10-27 11:00 | XR_ITS ---
Examination: Transrectal prostate sonography TECHNIQUE: Grayscale transrectal sonographic images prostate Date and time: October 27, 2024 1025 hours INDICATIONS: Diagnosis benign prostatic hyperplasia lower urinary tract symptoms months FINDINGS: Prostate 3.6 x 2.9 x 4.8 cm volume 26 cc Calcifications but no prostate nodules IMPRESSION: Negative for prostate nodule Negative for significant prostatomegaly
== END | disposition home or self-care (01) ==
PROVIDERS: PCP Physician Assistant; Referring Provider Physician Assistant; Visit Provider Physician Assistant
DX: N40.0 Benign prostatic hyperplasia without lower urinary tract symptoms (principal)
CPT/HCPCS: 76872

== ENCOUNTER → 2024-11-30 | Outpatient (CLI) | payer MEDICARE, MEDICAID, SELFPAY ==
[2024-11-30 14:05] LABS: Collection Type, Urine Clean Catch; RBC,Urine 0 /hpf (0-3); Squamous Epithelial Cell,Urine 0 /hpf (0-5)
[2024-11-30 14:27] LABS: Basophils # (Auto) 0.1 Thou/mm3 (0.0-0.2); Basophils % (Auto) 1 % (0-2.5); Eosinophils # (Auto) 0.3 Thou/mm3 (0.0-0.5); Eosinophils % (Auto) 4 % (0-10); Hematocrit 38.9 % (41.0-53.0); Immature Granulocytes % (Auto) 0 % (0-0); Immature Granulocytes Auto 0.02 Thou/mm3 (0.00-0.00); Lymphocytes # (Auto) 1.7 Thou/mm3 (1.0-4.8); Lymphocytes % (Auto) 23 % (10-50); Mean Corpuscular HGB Conc 33.4 g/dl (31.0-37.0); Mean Corpuscular Hemoglobin 30.9 pg (25.0-35.0); Mean Corpuscular Volume 92 fL (80-100); Monocytes # (Auto) 0.7 Thou/mm3 (0.0-0.8); Monocytes % (Auto) 9 % (0-12); Neutrophils # (Auto) 4.7 Thou/mm3 (1.8-7.7); Neutrophils % (Auto) 64 % (37-80); Nucleated Red Blood Cell % 0 /100 WBC (0); Platelet Count 233 Thou/mm3 (140-440); RDW Standard Deviation 42.5 fL (35.1-43.9); Red Blood Count 4.21 Miln/mm3 (4.50-5.90); White Blood Count 7.5 Thou/mm3 (3.8-10.6)
[2024-11-30 14:30] LABS: Bilirubin,Urine Negative (Negative); Blood,Urine Negative (Negative); Clarity,Urine Clear (Clear/Hazy); Color,Urine Yellow (Lt Yel-Yel); Glucose, Urine Negative (Negative); Ketones,Urine Negative (Negative); Leukocyte Esterase,Urine Negative (Negative); Nitrite,Urine Negative (Negative); Protein,Urine Trace (Neg - Trace); Specific Gravity,Urine 1.027 (1.001-1.035); Urobilinogen,Urine Negative mg/dL (0.0-1.0); WBC,Urine < 1 /hpf (0-5)
[2024-11-30 14:41] LABS: Anion Gap 6 (7-16); BUN/Creatinine Ratio 13 Ratio (12-20); Blood Urea Nitrogen 16 mg/dL (9-23); Calcium 9.1 mg/dL (8.3-10.6); Calcium (Corrected) 9.1 mg/dL (8.5-10.1); Carbon Dioxide 30.6 mMol/L (20.0-31.0); Chloride 106 mMol/L (98-107); Creatinine (Component) 1.2 mg/dL (0.6-1.3); Glucose 105 mg/dL (74-106); Osmolality,Calculated 286 (275-295); Phosphorous 3.2 mg/dL (2.4-5.1); Potassium 4.4 mMol/L (3.4-5.1); Sodium 143 mMol/L (136-145); eGFR > 60 See Note
== END | disposition home or self-care (01) ==
LOC: COPL 13:21
PROVIDERS: PCP Physician Assistant; Referring Provider Internal Medicine; Visit Provider Internal Medicine
DX: I12.9 Hypertensive chronic kidney disease with stage 1 through stage 4 chronic kidney disease, or unspecified chronic kidney disease (principal); N18.30 Chronic kidney disease, stage 3 unspecified
CPT/HCPCS: 36415; 80069; 81001; 85025

== ENCOUNTER → 2025-02-01 | Outpatient (CLI) | payer MEDICARE, MEDICAID, SELFPAY ==
--- NOTE | 2025-02-01 15:00 | XR_ITS ---
Examination: MRI cervical spine without intravenous contrast Date and time of exam: February 01, 2025 1545 hours INDICATIONS: Neck pain 2 years Technique: Multiple axial and sagittal sections of the cervical spine to been obtained. T2 weighted sagittal sections, TR 3, 270, TE 117 T1-weighted sagittal sections, TR 500, TE 11 T1-weighted axial sections, TR 607, TE 12, axial sections TR 18, TE 27 and T2 weighted transverse sections, TR 3920, TE 122. Findings: Adequate alignment cervical vertebral bodies No cervical fracture Diffuse cervical disc desiccation Advanced disc narrowing C6-C7 Intact odontoid No localized enlargement cervical cord C2-C3 3 mm central disc bulge with advanced left neural foraminal stenosis C3-C4 no disc protrusion C4-C5 3 mm central subarticular osteophyte disc complex, indenting cervical cord with moderate bilateral neural foraminal stenosis C5-C6 4 mm central cervical disc bulge, moderate bilateral neural foraminal stenosis C6-C7 5 mm central osteophyte disc complex, indenting the ventral margin cervical cord, advanced bilateral neural foraminal stenosis C7-T1 no disc protrusion IMPRESSION: C2-C3 3 mm central disc bulges advanced left neural foraminal stenosis C4-C5 3 mm central subarticular osteophyte disc complex, moderate bilateral neural foraminal stenosis C5-C6 4 mm central cervical disc bulge moderate bilateral neural foraminal stenosis C6-C7 overall severe acquired spinal stenosis, 5 mm central osteophyte disc complex indenting the ventral margin cervical cord, advanced bilateral neural foraminal stenosis
== END | disposition home or self-care (01) ==
LOC: SMRI 14:14
PROVIDERS: PCP Physician Assistant; Referring Provider Family Medicine; Visit Provider Family Medicine
DX: M48.02 Spinal stenosis, cervical region (principal); M25.78 Osteophyte, vertebrae
CPT/HCPCS: 72141

== ENCOUNTER → 2025-04-24 | Outpatient (CLI) | payer MEDICARE, MEDICAID, SELFPAY ==
[2025-04-24 09:53] LABS: Basophils # (Auto) 0.1 Thou/mm3 (0.0-0.2); Basophils % (Auto) 1 % (0-2.5); Eosinophils # (Auto) 0.3 Thou/mm3 (0.0-0.5); Eosinophils % (Auto) 5 % (0-10); Hematocrit 41.6 % (41.0-53.0); Hemoglobin 13.7 g/dL (13.5-16.0); Immature Granulocytes Auto 0.02 Thou/mm3 (0.00-0.00); Lymphocytes # (Auto) 1.3 Thou/mm3 (1.0-4.8); Lymphocytes % (Auto) 21 % (10-50); Mean Corpuscular HGB Conc 32.9 g/dl (31.0-37.0); Mean Corpuscular Hemoglobin 29.3 pg (25.0-35.0); Mean Corpuscular Volume 89 fL (80-100); Monocytes # (Auto) 0.4 Thou/mm3 (0.0-0.8); Monocytes % (Auto) 6 % (0-12); Neutrophils # (Auto) 4.2 Thou/mm3 (1.8-7.7); Neutrophils % (Auto) 67 % (37-80); Nucleated Red Blood Cell # 0.00 Thou/mm3 (0.00-0.00); Nucleated Red Blood Cell % 0 /100 WBC (0); Platelet Count 206 Thou/mm3 (140-440); RDW Standard Deviation 43.0 fL (35.1-43.9); Red Blood Count 4.68 Miln/mm3 (4.50-5.90); White Blood Count 6.3 Thou/mm3 (3.8-10.6)
[2025-04-24 09:58] LABS: INR 1.0 (0.9-1.3); Partial Thromboplastin Time 28.7 Seconds (22.0-36.0); Prothrombin Time 10.5 Seconds (9.0-12.2)
[2025-04-24 10:17] LABS: Anion Gap 5 (7-16); BUN/Creatinine Ratio 13 Ratio (12-20); Blood Urea Nitrogen 14 mg/dL (9-23); Calcium 9.4 mg/dL (8.3-10.6); Carbon Dioxide 30.6 mMol/L (20.0-31.0); Chloride 107 mMol/L (98-107); Creatinine (Component) 1.1 mg/dL (0.6-1.3); Glucose 123 mg/dL (74-106); Osmolality,Calculated 286 (275-295); Potassium 4.1 mMol/L (3.4-5.1); Sodium 143 mMol/L (136-145); eGFR > 60 See Note
== END | disposition home or self-care (01) ==
LOC: COPL 09:00
PROVIDERS: PCP Physician Assistant; Referring Provider Internal Medicine; Visit Provider Internal Medicine
DX: I25.10 Atherosclerotic heart disease of native coronary artery without angina pectoris (principal); I48.91 Unspecified atrial fibrillation
CPT/HCPCS: 36415; 80048; 85025; 85610; 85730